=== PATIENT | female | born 1955 | race Caucasian/White ===

== ENCOUNTER 2020-01-16 05:11 | Inpatient (IN) ==
--- NOTE | 2020-01-02 20:57 | PAT Medication Instructions ---
Medication Instructions Date of Service January 02, 2020 Home Medications Medication Instructions Recorded tizanidine 4 mg tablet 4 mg PO HS PRN #30 tab 05/08/19 escitalopram oxalate 5 mg tablet 5 mg PO DAILY PRN #90 tab 10/23/19 atenolol 50 mg tablet 50 mg PO QAM #90 tab 12/20/19 pravastatin 40 mg tablet 40 mg PO HS #90 tab 12/21/19 diclofenac potassium 50 mg tablet 50 mg PO BID #60 tab 12/25/19 clobetasol 0.05 % topical cream 1 appln TOP DAILY PRN diclofenac sodium 1 % topical gel 1 g TOP TID PRN lisinopril 5 mg tablet 2.5 - 5 mg PO QAM multivitamin,ky-adqm-lshrakgn 1 tab PO DAILY tizanidine 4 mg tablet 4 mg PO HS PRN omeprazole 20 mg PO QAM turmeric 400 mg PO DAILY escitalopram oxalate 5 mg tablet 5 mg PO DAILY PRN atenolol 50 mg tablet 50 mg PO QAM pravastatin 40 mg tablet 40 mg PO HS diclofenac potassium 50 mg tablet 50 mg PO BID diclofenac sodium 75 mg PO BID ASK your surgeon for instructions diclofenac potassium 50 mg tablet 50 mg PO BID diclofenac sodium 75 mg PO BID STOP taking 2 weeks before surgery (or as soon as possible if surgery is within 2 weeks) turmeric 400 mg PO DAILY STOP taking 24 hours before surgery clobetasol 0.05 % topical cream 1 appln TOP DAILY PRN diclofenac sodium 1 % topical gel 1 g TOP TID PRN DO NOT take the morning of surgery lisinopril 5 mg tablet 2.5 - 5 mg PO QAM multivitamin,uv-tvas-npxlqaxr 1 tab PO DAILY Take morning of surgery With a small sip of water, OTHERWISE NOTHING TO EAT OR DRINK AFTER MIDNIGHT: omeprazole 20 mg PO QAM escitalopram oxalate 5 mg tablet 5 mg PO DAILY PRN (if needed) atenolol 50 mg tablet 50 mg PO QAM Take evening before surgery tizanidine 4 mg tablet 4 mg PO HS PRN (if needed) escitalopram oxalate 5 mg tablet 5 mg PO DAILY PRN (if needed) pravastatin 40 mg tablet 40 mg PO HS Other Notes If you have any questions please call us at [phone] or [phone] or [phone] or [phone]
--- NOTE | 2020-01-03 09:25 | Anesthesiology Consultation ---
Date of Service January 03, 2020 Assessment & Plan (1) Encounter for pre-operative examination: Per PAT assessment on 01/02: Travel screen- patient traveled to [facility] to visit [facility] site 12/27/19 and shopping in [facility]. No known COVID-19 positive contacts. No history of COVID-19 testing. No current COVID-19 related symptoms. Chart Review Chart Review: Acceptable Risk for Surgery and Patient seen in Pre Admission Testing Teaching & Discussion Pre-Anesthesia Teaching/Discussion Notes: Instructed NPO after midnight before surgery,except medications with 15 cc of water. Medication instructions provided according to the PAT guidelines. History Surgery Operation Date: 01/16/20 10:55 Proposed Procedures p Left Total Hip Replacement - Arnulfo Lozano MD Height/Weight Height: 5 ft 4 in Weight: 108 kg Allergies Allergy/AdvReac Type Severity Reaction Status Date / Time morphine Allergy Intermediate hypotension, Verified 12/28/19 14:49 emesis, dry heave Egtupwq-Bto-Xdi Reductase AdvReac Mild muscle pain Verified 12/28/19 14:49 Inhibitor Medications Home Medications Medication Instructions Recorded Confirmed Last Taken clobetasol 0.05 % topical cream 1 appln TOP DAILY PRN 05/08/19 12/28/19 Unknown diclofenac sodium 1 % topical gel 1 g TOP TID PRN gm 05/08/19 12/28/19 Unknown lisinopril 5 mg tablet 2.5 - 5 mg PO QAM 05/08/19 12/28/19 07/29/19 multivitamin,dg-istq-alpgnxpf 1 tab PO DAILY 05/08/19 12/28/19 07/29/19 tizanidine 4 mg tablet 4 mg PO HS PRN #30 tab 05/08/19 12/28/19 Unknown omeprazole 20 mg PO QAM 07/10/19 12/28/19 07/29/19 turmeric 400 mg PO DAILY 07/10/19 12/28/19 Unknown escitalopram oxalate 5 mg tablet 5 mg PO DAILY PRN #90 tab 10/23/19 12/28/19 Unknown atenolol 50 mg tablet 50 mg PO QAM #90 tab 12/20/19 12/28/19 Unknown pravastatin 40 mg tablet 40 mg PO HS #90 tab 12/21/19 12/28/19 Unknown diclofenac potassium 50 mg tablet 50 mg PO BID #60 tab 12/25/19 12/28/19 Unknown diclofenac sodium 75 mg PO BID 12/28/19 12/28/19 Unknown Past Medical History Medical History (Updated 01/03/20 @ 12:33 by Bethany Guerra) Anxiety BCC (basal cell carcinoma) DDD (degenerative disc disease) lumbar History of blood clots LLE DVT (~2007), was on AC after event/since discontinued, no issues since History of hepatitis type unknown (?A)-- age 9/no issues since History of melanoma Hx of fracture of humerus left s/p fall- no surgical intervention PVD (posterior vitreous detachment), left eye floaters in L eye Exercise / Class Metabolic Activity III < 4 Walking/Shop/Light housework Past Family History Family History Father Asbestosis Diabetes Heart disease Mother Diabetes Alzheimer disease Brother No problems noted. Aunt Colorectal cancer Denies family history of Ovarian cancer Prostate cancer Myocardial infarction Breast cancer Lung cancer Past Surgical History Surgical History History of abdominoplasty 2002 History of bilateral tubal ligation History of colonoscopy History of hysterectomy with pubovaginal sling, 2003 History of knee surgery bilateral knees, laparoscopic cartilage tears 1997 and 1999 History of left shoulder replacement 2017 History of right hip replacement 2014 History of tonsillectomy done in 1958 Status post Mohs surgery Past Anesthesia History No Hx of Anesthesia Complications and No Family Hx of Anesthesia Complications (except post-op nausea for mother) History of PONV No Hx of PONV and Hx of Motion Sickness Social History Smoking Status: Never smoker Do You Dip or Chew Tobacco: No Hx Alcohol Use: No Hx Substance Use: No substance use type: does not use Review of Systems Chronic, dry morning cough unchanged. Patient denies chest pain, shortness of breath, chills, fever, wheezing, palpitations. Physical Exam Vital Signs VITALS BP 125/73 P 58 TEMP 98.9 SP02 94%RA RESP 18 PHYSICAL Full neck and c-spine range of motion. Full TMJ range of motion. TMD 3.5 finger breaths Mallampati Score 3 Dentition: intact, right upper implant, several crowns, left upper bridge Lungs: clear throughout to auscultation Cardiac: regular rate and rhythm, no murmurs noted Spine: normal Carotid arteries: negative bruit Extremities: no edema Testing Laboratory Results 01/03/20 09:55 PT 10.8 Seconds (9.0-12.0) 01/03/20 09:55 INR 1.0 (0.9-1.1) 01/03/20 09:55 APTT 25.4 Seconds (21.0-31.0) 01/03/20 09:55 Blood Type AB Positive 01/03/20 09:55 Antibody Screen NEGATIVE 01/03/20 09:55 12/20/19 SODIUM 138 POTASSIUM 4.8 CHLORIDE 104 CO2 29 BUN 18 CREATININE 0.86 GLUCOSE 102 HGBA1C 5.7% Electrocardiogram Date: 07/12/19 Findings: + SB @ (51) Chest X-Ray Date: 07/29/19 Lung volumes are normal. Lungs are clear. There is no pneumothorax or pleural effusion. Cardiac size is normal. Mediastinal contours are normal. There is no evidence for pulmonary edema. Left shoulder arthroplasty is partially imaged. Note is made of a nondisplaced fracture of the posterior lateral left eighth rib. This fracture is age indeterminate but was not evident on exam of July 12, 2019. IMPRESSION: Acute to subacute nondisplaced fracture of the left eighth rib (patient reports this resolved without intervention per PAT visit 01/03/20). No pneumothorax.
[2020-01-03 10:57] LABS: Basophils # (auto) 0.01 K/uL (0-0.2); Basophils % (auto) 0.2 %; Eosinophils # (auto) 0.43 K/uL (0-0.5); Hematocrit (blood only) 42.1 % (37-47); Hemoglobin 13.8 g/dL (12.0-16.0); Immature Granulocytes # (auto) 0.02 K/uL (0.00-0.02); Immature Granulocytes % (auto) 0.3 %; Lymphocytes # (auto) 1.35 K/uL (1.2-3.4); Mean Corpuscular Hemoglobin 30.9 pg (25-34); Mean Corpuscular Hgb Conc 32.8 g/dL (32-36); Mean Corpuscular Volume 94.4 fL (80-100); Mean Platelet Volume 10.8 fL (7.4-10.4); Monocytes # (auto) 0.57 K/uL (0.11-0.59); Monocytes % (auto) 9.3 %; Neutrophils # (auto) 3.77 K/uL (1.4-6.5); Neutrophils % (auto) 61.2 %; Platelet Count 191 K/uL (130-400); RDW Coefficient of Variation 13.6 % (11.5-14.5); Red Blood Count 4.46 M/uL (4.2-5.4); White Blood Count 6.15 K/uL (4.8-10.8)
[2020-01-03 11:10] LABS: Partial Thromboplastin Ratio 0.9; Partial Thromboplastin Time 25.4 Seconds (21.0-31.0); Prothrombin Time 10.8 Seconds (9.0-12.0)
--- NOTE | 2020-01-12 18:43 | History and Physical Report ---
DATE OF ADMISSION: 01/16/2020 CHIEF COMPLAINT: Persistent left hip pain and discomfort. HISTORY OF PRESENT ILLNESS: The patient is a 64-year-old female who presents for surgical treatment of her left hip. She had a long history of left hip problems. She underwent a right hip replacement done by Dr. Mcclendon in [place] back in 2013. She has done okay from this but over the past several years, she developed increased pain and discomfort in her left hip. She has groin pain, thigh pain, radiates down to her knee. The more she walks, the more it hurts. She limps more as the day goes on. She was actually scheduled for surgery back in July, but fell and broke her humerus a week before the surgery and had to cancel. She was then rescheduled and this was then delayed due to COVID epidemic. She now presents for surgical treatment. Her symptoms are unchanged and only have gotten worse. She takes diclofenac with minimal relief. PAST MEDICAL HISTORY: 1. Elevated cholesterol. 2. Hypertension. 3. Hepatitis. 4. Gastroesophageal reflux disease. 5. Questionable history of a DVT in 2007 without clotting disorder. 6. Obesity. 7. Sciatica. 8. Melanoma. PAST SURGICAL HISTORY: Include: 1. Tonsillectomy. 2. Hysterectomy. 3. Vaginal sling surgery. 4. Abdominoplasty. 5. Bilateral knee arthroscopy. 6. Right total hip replacement done 03/11/2014 in [place]. 7. Left shoulder replacement done 05/2017. ALLERGIES: MORPHINE, WHICH CAUSES HYPERTENSION AND NAUSEA. HOME MEDICATIONS: Include: 1. Atenolol. 2. Lisinopril. 3. Prilosec. 4. Tramadol. 5. Diclofenac. 6. Tizanidine. 7. Multivitamin. 8. Turmeric. 9. Lexapro. 10. Clobetasol cream. SOCIAL HISTORY: A 64-year-old white female. She lives in [place]. She is . She does not drink. No smoking history. FAMILY HISTORY: Significant for heart disease and diabetes. REVIEW OF HISTORY: Negative for diabetes, neurologic problems, vascular problems or bleeding disorders. No current chest pain or shortness of breath. No clear history of DVT or PE. No known clotting disorder. PHYSICAL EXAMINATION: GENERAL: Shows pleasant, middle-aged female. Looks to be in pretty good health. HEENT: Benign. NECK: Supple, no lymphadenopathy. LUNGS: Clear to auscultation. HEART: Has a regular rate and rhythm. ABDOMEN: Soft, nontender, nondistended. EXTREMITIES: Grossly neurovascularly intact except as follows: Examination of the left hip revealed patient ambulates independently. She does have a slight limp on the left side. She is about a 0.5 cm short on the left compared to her right. She has got pain with hip motion and stiffness with hip motion. She can internally rotate to about neutral. Negative straight leg raise. X-RAYS: X-rays of the left hip from previously reviewed, shows advanced left hip DJD. She has got fairly concentric inflammatory type disease pattern. She has got near complete loss of joint space. She has pincer type impingement. ASSESSMENT: A 64-year-old white female who has had history of hypertension, elevated cholesterol, gastroesophageal reflux disease, and obesity with advanced left hip degenerative joint disease. She has been scheduled for hip surgery several times and canceled for multiple reasons. Everything cleared up now and she would like to proceed. PLAN: We will take her to the operating room and do a left total hip replacement. The risks and benefits of this procedure were explained to the patient including but not limited to DVT, PE, , infection, neurological injury, vascular injury, bleeding problem, pain, limited range of motion, stiffness, failure to relieve symptoms, incomplete relief of symptoms, need for further surgery in future, fracture, leg length inequality, nerve palsy, and dislocation, etc. The patient understands and desires to proceed. Informed consent was obtained. I did tell we will do the best we can to get her leg lengths as equal as possible. We did talk to her about taking her atenolol the morning of surgery and holding lisinopril. She is planning to be discharged home using [facility] home health program.
[2020-01-16] MEDS ORDERED: LR 60ML/HR IV SCH (06:00)
[2020-01-16] MEDS ORDERED: BUPIVACAINE LIPOSOME/PF 266 MG, BUPIVACAINE/EPINEPHRINE 50 ML, SODIUM CHLORIDE 0.9% 30 ... INFIL SCH (06:00)
[2020-01-16] MEDS ORDERED: TRANEXAMIC ACID 1,000 MG **IV Pre-op IV SCH (06:00)
[2020-01-16] MEDS ORDERED: ACETAMINOPHEN 500 MG TAB PO SCH (06:00)
[2020-01-16] MEDS ORDERED: LR 500ML BOLUS, THEN 15ML/HR IV SCH (06:00)
[2020-01-16] MEDS ORDERED: GABAPENTIN 300 MG CAP PO SCH (06:00)
[2020-01-16] MEDS ORDERED: TRANEXAMIC ACID 1,000 MG **IV Intra-op IV SCH (06:00)
[2020-01-16] MEDS ORDERED: METOCLOPRAMIDE HCL 10 MG TABLET PO SCH (06:00)
[2020-01-16] MEDS ORDERED: FAMOTIDINE 20 MG TAB PO SCH (06:00)
[2020-01-16] MEDS ORDERED: CEFAZOLIN 2000MG 2,000 MG/15 ML SYR IV SCH (06:00)
[2020-01-16] MEDS ORDERED: SCOPOLAMINE 1.5 MG TDSY TD SCH (06:00)
[2020-01-16] MEDS ORDERED: BUPIVACAINE 0.5 % 5 MG/1 ML PF 10ML VIAL ONE (06:13)
[2020-01-16] MEDS ORDERED: MIDAZOLAM HCL 1 MG/ML 2ML VIAL ONE ×2 (06:29→06:30)
[2020-01-16] MEDS ORDERED: fentaNYL citrate 100 MCG/2 ML VIAL ONE (06:29)
[2020-01-16] MEDS ORDERED: MoRPHine SULFATE PF 1 MG/ML 10 ML AMP/VIAL ONE (06:31)
[2020-01-16] MEDS ORDERED: ONDANSETRON INJ 2 MG/ML 2 ML VIAL IV PRN ×2 (06:34→09:33)
[2020-01-16] MEDS ORDERED: fentaNYL citrate 100 MCG/2 ML VIAL IV PRN (06:34)
[2020-01-16] MEDS ORDERED: ePHEDrine sulfate 50 MG/ML AMP IV PRN (06:34)
[2020-01-16] MEDS ORDERED: ATROPINE SULFATE 0.1 MG/ML 10ML SYR IV PRN (06:34)
[2020-01-16] MEDS ORDERED: EPINEPHrine INJ 1 MG/ML AMP ONE (06:42)
[2020-01-16] MEDS ORDERED: BUPIVACAINE 0.5 % 5 MG/1 ML MPF 30ML VIAL ONE (06:42)
[2020-01-16] MEDS ORDERED: BACITRACIN INJ 50,000 UNIT VIAL ONE (06:43)
--- NOTE | 2020-01-16 06:50 | History & Physical Bridge Note ---
Date of Service January 16, 2020 History & Physical Bridge Note I have examined the patient, reviewed the History & Physical and in the interval since the performance of the History & Physical I have noted the following changes of clinical significance: no changes noted
[2020-01-16] MEDS ORDERED: ePHEDrine sulfate 50 MG/ML SYR ONE (07:12)
[2020-01-16] MEDS ORDERED: PROPOFOL IV EMULSION 10 MG/ML 20 ML VIAL IV ONE (07:12)
--- NOTE | 2020-01-16 08:45 | Post Operative Brief Note ---
PG Immediate Post Op with CF Date of Surgery January 16, 2020 Pre & Post Diagnosis Operation Date: 01/16/20 07:00 Pre-Op Diagnosis: LEFT HIP DEGENERATIVE JOINT DISEASE Post-Op Diagnosis: LEFT HIP DEGENERATIVE JOINT DISEASE I identified the patient and participated in the time-out.: Yes Procedure Operation Date: 01/16/20 07:00 Actual Procedures p Left Total Hip Replacement(Left) - Arnulfo Lozano MD Surgeon Arnulfo Lozano MD Printing Agent Froilan, PAC Estimated Blood Loss 300 Findings Consistent with Post-Op Diagnosis Fluids 1000 cc Specimens Specimen Description: Permanent Specimen: A) Left Femoral Head Drains Forde Catheter Anesthesia Type Spinal MAC Complications none Disposition Accompanied Patient To Recovery: Yes Disposition: Recovery Room
--- NOTE | 2020-01-16 09:09 | XRay Report ---
XR hip 1V LT w pelvis CLINICAL HISTORY: Postoperative evaluation. COMPARISON: Left hip radiographs July 29, 2019. FINDINGS: Alignment of the total left arthroplasty is anatomic. There is no fracture or unexpected r adiopaque foreign body. There are 2 acetabular screws. Skin tomas are noted. Right hip arthroplasty is noted. IMPRESSION: Expected findings following total left hip arthroplasty. ACT 112: Negative or not required by law. Electronically signed by: Bennett Miller M.D. 01/16/2020 9:07 AM
[2020-01-16] MEDS ORDERED: NALOXONE HCL 0.4 MG/1 ML VIAL/CARP IV PRN (09:33)
[2020-01-16] MEDS ORDERED: TIZANIDINE HCL 4 MG TABLET PO PRN (09:33)
[2020-01-16] MEDS ORDERED: ALUMINUM/MAGNESIUM SUSP 30 ML UDC PO PRN (09:33)
[2020-01-16] MEDS ORDERED: METOCLOPRAMIDE HCL INJ 5 MG/ML 2 ML VIAL IV PRN (09:33)
[2020-01-16] MEDS ORDERED: NON-FORMULARY MEDICATION (Clobetasol 1 APPLN) TOP PRN (09:33)
[2020-01-16] MEDS ORDERED: HYDROmorphone INJ 0.5 MG/0.5 ML SYR IV PRN (09:33)
[2020-01-16] MEDS ORDERED: MAGNESIUM HYDROXIDE SUSP 30 ML UDC PO PRN (09:33)
[2020-01-16] MEDS ORDERED: bisacodyL 10 MG SUPP PR PRN (09:33)
[2020-01-16] MEDS: SODIUM CHLORIDE 0.9% 1000ML 1,000 ML IV SCH ×2 (10:08→19:57)
[2020-01-16] MEDS ORDERED: BETAMETHASONE DIP AUG (DIPROLENE) 0.05% CR 15 GM TUBE EXT PRN (10:10)
--- NOTE | 2020-01-16 10:17 | Anesthesiology Progress Note ---
Date of Service January 16, 2020 Anesthesia Post Procedure Vital Signs Vital Signs: Temp Pulse Pulse Resp BP Pulse Ox 01/16/20 09:59 97.3 F L 58 L 14 119/66 95 01/16/20 09:37 97.5 F L 55 L 14 130/68 95 01/16/20 09:15 97.7 F 56 L 15 118/51 L 96 01/16/20 09:05 55 L 14 113/54 L 96 01/16/20 08:55 57 L 12 119/69 97 01/16/20 08:47 97.5 F L 60 12 132/65 97 01/16/20 06:22 98.6 F 64 18 159/77 H 97 Pain Intensity Left Hip: Pain Intensity: 3 Transfer of Care Handoff Completed per policy Notes Mental Status: alert / awake / arousable and participated in evaluation Patient Amnestic to Procedure: Yes Nausea / Vomiting: adequately controlled Pain: adequately controlled Airway Patency, RR, SpO2: stable & adequate BP & HR: stable & adequate Hydration State: stable & adequate Neuraxial Anesthesia: was administered and sensory block is resolving Anesthetic Complications: no major complications apparent and Pt Satisfied with anesthetic care
--- NOTE | 2020-01-16 10:58 | Operative Report ---
Post Operative Report Pre & Post Diagnosis Operation Date: 01/16/20 07:00 Pre-Op Diagnosis: LEFT HIP DEGENERATIVE JOINT DISEASE Post-Op Diagnosis: LEFT HIP DEGENERATIVE JOINT DISEASE I identified the patient and participated in the time-out.: Yes Procedure Operation Date: 01/16/20 07:00 Actual Procedures p Left Total Hip Replacement(Left) - Arnulfo Lozano MD Surgeon Arnulfo Lozano MD Control Specialist Froilan, PAC Estimated Blood Loss 300 Findings Consistent with Post-Op Diagnosis Operative findings revealed advanced left hip DJD. She had extensive grade 4 changes of the femoral head as well as acetabulum. She had an anterior acetabular osteophyte. A moderate-sized joint effusion. Fluids 1200 cc. Specimens Left femoral head sent for pathology. Drains None. Anesthesia Type Spinal MAC Complications none Disposition Accompanied Patient To Recovery: Yes Disposition: Recovery Room Indications Patient is a 64-year-old female is had a long history of left hip pain and discomfort. She been through extensive conservative trach care which became less successful over time. She was actually scheduled for left hip replacement about 6 months ago but fell and broke her humerus. She is now healed this up. She now elected to proceed with total hip arthroplasty. Description of Procedure Operative implants consist of: 1. Biomet G7 size 48 mm acetabular shell. 2. 6.5 cancellus acetabular screws 1 of 35 mm length and 25 mm length. 3. [place] hole eliminator. 4. 48 mm outer diameter 32 mm diameter highly cross-linked polyethylene liner. 5. Trinidad Corail size 9 KLA femoral stem. 6. +5/32 mm ceramic articular ball. Patient was taken to the operating room identified and placed on the operating table supine position protectors were properly padded. IV antibiotics arrived by anesthesia team. Spinal anesthetic of the implemented holding area. A Forde catheter was placed in sterile fashion. The patient then placed in the right lateral decubitus position. An axillary roll was placed. A Stulberg hip positioner was used for positioning. The left hip and leg were then prepped and draped in usual sterile fashion. A posterior lateral approach to the left hip was then performed through a curvilinear incision centered over the greater trochanter. Sharp passes Through subcutaneous tissues down to level the IT band gluteal fascia. She did have a fairly thick and stiff soft tissue envelope. The IT band gluteal fascia then incised longitudinally in line with skin incision. The underlying greater truck bursa was excised. The piriformis and external rotators along with the posterior capsule were then released from the posterior aspect hip joint as a single layer. Great care was taken throughout the procedure protect the sciatic nerve at all times. Hip was internally rotated and dislocated. A femoral neck osteotomy cut was made with Final Cut about 12 mm above the lesser trochanter. Femoral head was removed and sent for pathology. The femur was retracted anteriorly. Attention drawn the acetabulum. The acetabular labrum was excised. The pulmonary fat fat was excised. Sequential reaming the acetabular was then performed again with size 43 and progressing up to a 47. We did just anterior the a beginning of the acetabulum with a 48 reamer. I then placed a 48 mm Biomet G7 acetabular shell in about 40 degrees lateral opening and 20 degrees of anteversion. It was fixed with two 6.5 cancellus acetabular screws. An anterior osteophyte was removed. Trial liner was placed. Attention drawn the femur. The proximal femur was entered with a cookie-cutter followed by canal finder lateralizing reamer. I then broached beginning with size 8 and progressing up to 9. It was fairly tight and 9 so we stop there. I then used a calcar reamer to smooth and off the calcar. I then trialed the hip and the +5 articular ball seem to re-create soft tissue tension appropriately, leg lengths equal and was fully stable in extension and external rotation flexion to 9 degrees into rotation over [address] I elect to place these implants. All trial implants were removed. An apex hole eliminator was placed. Highly cross-linked polyethylene liner was placed. A size 9 KLA femoral stem was impacted in position. A +5/32 mm ceramic articular ball was placed. Hip was located once again found to be stable. Attention drawn toward closing. Wound was irrigated with copious amounts of pulsatile lavage solution. I did inject locally with 60 cc of appetite Marcaine with epinephrine. The posterior capsule and external rotators were repaired as a single layer through drill holes in the posterior trochanter with #2 Tycron suture. The IT band gluteal fascia then closed in 1 PDS suture running fashion. Subcutaneous tissue then closed in 2 layers the deep layer #2 Vicryl suture in a buried interrupted fashion followed by the 2-0 Dexon suture in a buried interrupted fashion. Skin was then closed with skin tomas. Leg was then cleaned dried a sterile dressing composed Xeroform, 4 x 4's, sterile ABD pad and foam tape was applied. Patient then transferred to the recovery room in stable condition. Patient tolerated procedure well and there were no complications. I attest to the content of the Intraoperative Record and any orders documented therein. Any exceptions are noted below.
[2020-01-16] MEDS: ATENOLOL 50 MG TABLET PO SCH (11:00)
[2020-01-16] MEDS: lisinopriL 5 MG TAB PO SCH (11:01)
[2020-01-16] MEDS: PANTOprazole 40 MG TAB PO SCH (11:02)
[2020-01-16] MEDS: ASPIRIN 81 MG ECTAB PO SCH ×3 (11:04→20:33)
[2020-01-16] MEDS: DOCUSATE SODIUM 100 MG CAP PO SCH ×3 (11:04→20:33)
[2020-01-16] MEDS: MULTIVITAMIN TAB PO SCH (11:15)
[2020-01-16] MEDS: CEROVITE ADV FORMULA TAB PO SCH (11:15)
[2020-01-16] MEDS: KETOROLAC TROMETHAMINE 15 MG/ML VIAL IV SCH ×2 (12:34→17:03)
--- NOTE | 2020-01-16 13:45 | Progress Notes ---
DATE: 01/16/2020 SUBJECTIVE: A 64-year-old white female postop from a left total hip replacement. She is doing pretty well. Has a little bit of pain but manageable. No chest pain or shortness of breath. Not feeling dizzy or lightheaded. OBJECTIVE: VITAL SIGNS: Temperature 36.6. Vital signs stable. GENERAL: Shows a pleasant, middle-aged female. She is lying in bed, looks pretty comfortable. LUNGS: Clear to auscultation. HEART: Has a regular rate and rhythm. ABDOMEN: Soft, nontender, nondistended. EXTREMITIES: Grossly neurovascularly intact except as follows: Examination of the left lower extremity reveals the leg to be well aligned. Leg lengths appear equal. Hip is located. Dressing is clean, dry and intact. Thigh is soft and supple. She can dorsiflex and plantarflex her foot appropriately. X-RAYS: X-rays of the left hip from recovery room reviewed. It shows left uncemented total hip arthroplasty. Components look to be in good position. No signs of problems. ASSESSMENT: 64-year-old white female postop from a left hip replacement, doing well. Her pain is reasonably well controlled. Hip is located. She is neurologically intact. PLAN: 1. DVT prophylaxis including thigh-high TEDS, SCDs, and aspirin twice a day. 2. PT/OT. Weight bear as tolerated. Left total hip protocol. 3. Pain control, doing pretty well with current pain regimen. 4. IV antibiotics x24 hours. 5. Disposition: Plan to discharge to home with some home health once adequately recovered and medically stable.
[2020-01-16] MEDS: ACETAMINOPHEN 500 MG TAB PO SCH ×2 (14:14→20:32)
[2020-01-16] MEDS: TRAMADOL HCL 50 MG TABLET PO PRN ×2 (14:20→19:53)
[2020-01-16] MEDS ORDERED: TRANEXAMIC ACID / 0.7% NACL 1,000 MG/100 ML BAG IV SCH (14:48)
[2020-01-16] MEDS: CEFAZOLIN 2000MG 2,000 MG/15 ML SYR IV SCH (16:25)
[2020-01-16] MEDS: CHECK SCOPOLAMINE PATCH PLACEMENT SCH (16:25)
[2020-01-16] MEDS: ASCORBIC ACID 500 MG TAB PO SCH (18:09)
[2020-01-16] MEDS: FERROUS GLUCONATE 324 MG TAB PO SCH (18:09)
[2020-01-16] MEDS: PRAVASTATIN SOD 40 MG TAB PO SCH (20:33)
[2020-01-16] MEDS: SENNA 8.6 MG TAB PO SCH (20:34)
[2020-01-17] MEDS: CEFAZOLIN 2000MG 2,000 MG/15 ML SYR IV SCH (00:04)
[2020-01-17] MEDS: KETOROLAC TROMETHAMINE 15 MG/ML VIAL IV SCH ×5 (00:04→23:58)
[2020-01-17] MEDS: CHECK SCOPOLAMINE PATCH PLACEMENT SCH ×4 (00:08→23:58)
[2020-01-17] MEDS: TRAMADOL HCL 50 MG TABLET PO PRN ×3 (03:52→21:40)
[2020-01-17] MEDS: ACETAMINOPHEN 500 MG TAB PO SCH ×3 (05:40→21:32)
[2020-01-17] MEDS: SODIUM CHLORIDE 0.9% 1000ML 1,000 ML IV SCH (05:43)
[2020-01-17 07:13] LABS: Basophils # (auto) 0.01 K/uL (0-0.2); Basophils % (auto) 0.1 %; Eosinophils # (auto) 0.04 K/uL (0-0.5); Eosinophils % (auto) 0.3 %; Hemoglobin 11.6 g/dL (12.0-16.0); Immature Granulocytes # (auto) 0.06 K/uL (0.00-0.02); Immature Granulocytes % (auto) 0.4 %; Lymphocytes # (auto) 1.14 K/uL (1.2-3.4); Lymphocytes % (auto) 8.4 %; Mean Corpuscular Hgb Conc 31.4 g/dL (32-36); Mean Corpuscular Volume 95.6 fL (80-100); Mean Platelet Volume 10.3 fL (7.4-10.4); Monocytes # (auto) 1.22 K/uL (0.11-0.59); Neutrophils # (auto) 11.06 K/uL (1.4-6.5); Neutrophils % (auto) 81.8 %; Platelet Count 171 K/uL (130-400); RDW Coefficient of Variation 13.7 % (11.5-14.5); Red Blood Count 3.87 M/uL (4.2-5.4); White Blood Count 13.53 K/uL (4.8-10.8)
[2020-01-17 07:29] LABS: BUN Creatinine Ratio 19.3 (10-20); Calcium 9.2 mg/dl (8.5-10.1); Creatinine Clr Calc Pharmacy 70.7 ml/min; Est GFR (African American) 73.3; Est GFR (Non-African American) 63.2; Potassium 4.3 mmol/L (3.5-5.1)
--- NOTE | 2020-01-17 07:52 | Progress Notes ---
DATE: 01/17/2020 SUBJECTIVE: A 64-year-old white female postop day #1 from a left hip replacement. She is doing pretty well. Pain has been controlled overnight. No chest pain or shortness of breath. Not feeling dizzy or lightheaded. OBJECTIVE: VITAL SIGNS: Temperature 37.3. Vital signs stable. GENERAL: Shows a pleasant, middle-aged female. She is lying in bed, looks pretty comfortable this morning. EXTREMITIES: Examination of the left hip and leg reveals the leg lengths to be equal. Dressing is clean, dry and intact. Thigh is soft and supple. She is neurologically intact. She can dorsiflex and plantarflex her foot appropriately. LABORATORY DATA: Hemoglobin 11.6. Hematocrit 37.0. Electrolytes are pending. ASSESSMENT: A 64-year-old white female postoperative day #1 from left hip replacement, doing well. Pain is controlled. Hip is located. She is neurologically intact. PLAN: 1. DVT prophylaxis including thigh-high TEDs, SCDs, and aspirin twice a day. 2. PT/OT weightbear as tolerated. Left total hip protocol. 3. Pain control, doing pretty well with current pain regimen. 4. Disposition: Plan to discharge to home with some home health once adequately recovered and medically stable.
--- NOTE | 2020-01-17 08:22 | Anesthesiology Progress Note ---
Date of Service January 17, 2020 Anesthesia Post Procedure Vital Signs Vital Signs: Temp Pulse Pulse Resp BP Pulse Ox 01/17/20 07:14 37.3 C 75 16 120/66 93 01/17/20 03:21 37.3 C 79 20 123/69 92 01/17/20 00:00 37.7 C H 01/16/20 23:25 38.9 C H 84 16 143/74 H 93 01/16/20 19:24 37.2 C 64 18 132/73 93 01/16/20 15:18 36.6 C 65 18 144/76 H 96 01/16/20 12:55 36.4 C L 60 16 119/70 96 01/16/20 11:26 36.5 C 57 L 18 127/71 95 01/16/20 10:30 36.4 C L 52 L 18 118/66 96 01/16/20 09:59 36.3 C L 58 L 14 119/66 95 01/16/20 09:37 36.4 C L 55 L 14 130/68 95 01/16/20 09:15 36.5 C 56 L 15 118/51 L 96 01/16/20 09:05 55 L 14 113/54 L 96 01/16/20 08:55 57 L 12 119/69 97 01/16/20 08:47 36.4 C L 60 12 132/65 97 Pain Intensity Left Hip: Pain Intensity: 2 Notes Mental Status: alert / awake / arousable and participated in evaluation Nausea / Vomiting: adequately controlled Pain: adequately controlled Airway Patency, RR, SpO2: stable & adequate BP & HR: stable & adequate Hydration State: stable & adequate Neuraxial Anesthesia: sensory block resolved Anesthetic Complications: Pt Satisfied with anesthetic care
[2020-01-17] MEDS: ASCORBIC ACID 500 MG TAB PO SCH ×2 (08:23→18:01)
[2020-01-17] MEDS: FERROUS GLUCONATE 324 MG TAB PO SCH ×2 (08:23→18:02)
[2020-01-17] MEDS: ASPIRIN 81 MG ECTAB PO SCH ×2 (08:24→21:29)
[2020-01-17] MEDS: DOCUSATE SODIUM 100 MG CAP PO SCH ×2 (08:24→21:29)
[2020-01-17] MEDS: ATENOLOL 50 MG TABLET PO SCH (08:25)
[2020-01-17] MEDS: PANTOprazole 40 MG TAB PO SCH (08:25)
[2020-01-17] MEDS: MULTIVITAMIN TAB PO SCH (08:26)
[2020-01-17] MEDS: lisinopriL 5 MG TAB PO SCH (08:26)
[2020-01-17] MEDS: CEROVITE ADV FORMULA TAB PO SCH (08:26)
[2020-01-17] MEDS: PRAVASTATIN SOD 40 MG TAB PO SCH (21:29)
[2020-01-17] MEDS: SENNA 8.6 MG TAB PO SCH (21:29)
[2020-01-17] MEDS: ESCITALOPRAM OXALATE 10 MG TAB PO PRN (21:41)
[2020-01-18] MEDS: ACETAMINOPHEN 500 MG TAB PO SCH (05:34)
[2020-01-18] MEDS: KETOROLAC TROMETHAMINE 15 MG/ML VIAL IV SCH (05:34)
[2020-01-18] MEDS: TRAMADOL HCL 50 MG TABLET PO PRN (07:55)
[2020-01-18] MEDS: PANTOprazole 40 MG TAB PO SCH (07:56)
[2020-01-18] MEDS: CHECK SCOPOLAMINE PATCH PLACEMENT SCH (07:56)
[2020-01-18] MEDS: ATENOLOL 50 MG TABLET PO SCH (07:57)
[2020-01-18] MEDS: lisinopriL 5 MG TAB PO SCH (07:57)
[2020-01-18] MEDS: ASPIRIN 81 MG ECTAB PO SCH (07:59)
[2020-01-18] MEDS: CEROVITE ADV FORMULA TAB PO SCH (07:59)
[2020-01-18] MEDS: DOCUSATE SODIUM 100 MG CAP PO SCH (08:00)
[2020-01-18] MEDS: MULTIVITAMIN TAB PO SCH (08:00)
[2020-01-18] MEDS: ASCORBIC ACID 500 MG TAB PO SCH (08:00)
[2020-01-18] MEDS: FERROUS GLUCONATE 324 MG TAB PO SCH (08:00)
[2020-01-18] MEDS: ESCITALOPRAM OXALATE 10 MG TAB PO PRN (08:50)
--- NOTE | 2020-01-18 08:53 | Progress Notes ---
DATE: 01/18/2020 SUBJECTIVE: A 64-year-old white female postop day 2 from a left hip replacement. She is doing pretty well. Pain is controlled. Therapy went pretty well. No chest pain or shortness of breath. Not feeling dizzy or lightheaded. OBJECTIVE: VITAL SIGNS: Temperature 36.5. Vital signs stable. GENERAL: Shows a pleasant, middle-aged female. She is sitting up in her bedside chair and looks comfortable. EXTREMITIES: Examination of left hip and leg reveals the leg lengths to be equal. Dressing is clean, dry and intact. Thigh is soft and supple. She is neurologically intact. ASSESSMENT: A 64-year-old white female postop day 2 from a left hip replacement, doing well. Pain is controlled. Hip is located. She is neurologically intact. PLAN: 1. DVT prophylaxis including thigh-high TEDs, SCDs, and aspirin twice a day. 2. PT/OT. Weight bear as tolerated. Left total hip protocol. 3. Pain control, doing well with current pain regimen. 4. Disposition: Plan to discharge to home with some home health later today.
--- NOTE | 2020-01-21 16:25 | Discharge Summary ---
Date of Service January 21, 2020 Admission HPI Per Admitting Provider Documented in the H&P Admission Exam (Per Admitting) Constitutional Documented in the H&P Discharge Data Consultations 01/17/20 08:00 Consult Case Management - Discharge Planning Routine Procedures Performed Operation Date: 01/16/20 07:00 Actual Procedures p Left Total Hip Replacement(Left) - Arnulfo Lozano MD Hospital Course (1) Status post total hip replacement, left: 64-year-old female admitted on 01/16/2020 and underwent total hip arthroplasty. She tolerated the procedure well there no complications. She is transferred to the PACU postoperatively and later the orthopedic for further care. She is given Ancef for antibiotic prophylaxis. She was given DANNY stockings, SCDs, and aspirin for DVT prophylaxis. Hemoglobin, hematocrit, and vital signs were monitored during her hospital stay and remained stable. There were no complications. She did not require any blood transfusions. By postoperative day 2 she was tolerating a regular diet, pain was controlled with oral pain medicine, and she was participating in physical therapy. On postoperative day 2 she was discharged home set up with home health services. She is given printed discharge instructions as well as new prescriptions for extra strength Tylenol, aspirin, and tramadol. Continue physical therapy. Continue weightbearing as tolerated. Continue total hip precautions. Follow-up approximately 2 weeks postop or sooner if there are any problems or concerns. Coding Level of Care Code None Diagnoses Status post total hip replacement, left Z96.642
== END 2020-01-18 11:25 | disposition home health service (06) | DRG 470 ==
LOC: ASU 05:11 → 3E 08:49

== ENCOUNTER 2023-03-21 07:12 | Inpatient (IN) ==
[2023-03-21] MEDS ORDERED: ONDANSETRON INJ 2 MG/ML 2 ML VIAL IV STA (07:33)
[2023-03-21] MEDS ORDERED: SODIUM CHLORIDE 0.9% 500 ML IV STA (07:33)
--- NOTE | 2023-03-21 07:43 | Emergency Department Note ---
Impression & Plan Acute ischemic colitis, Acute lower GI bleeding, Abdominal pain, Abnormal EKG, Elevated troponin I level ED Provider Note NAME: JULIETA OSULLIVAN AGE: 67 SEX: F : 1955 ARRIVES VIA: Walk-In INFORMANT: Patient, ED PROVIDER(S): Chintan Rachel DO CHIEF COMPLAINT: Abdominal pain HPI: The patient is a 67-year-old female who presented to the emergency department with significant lower abdominal pain which began at 2:00 this morning. She has had 1 episode of nausea and vomiting. This was not associated with any hematemesis. The patient states that since that time she has had multiple episodes of maroon diarrhea. She has had some formed stool with this as well. She denies having any fever. She denies have any cough or chest pain. The patient states that she feels very weak. She has no history of anticoagulation use. The patient took some Imodium last evening with a small amount of water otherwise she has had nothing to eat or drink. There are no sick contacts. ROS: See above HPI for pertinent positives & negatives. A total of 10 systems reviewed and were otherwise negative. PAST MEDICAL HISTORY: See Below PAST SURGICAL HISTORY: See Below FAMILY HISTORY: See Below SOCIAL HISTORY: See Below HOME MEDICATIONS: See Below ALLERGIES: See Below VITALS: See Below PHYSICAL EXAMINATION: GENERAL: The patient is awake and alert. The patient is somewhat anxious appearing. EYES: The conjunctivae are clear. The pupils are round and reactive. EARS, NOSE, MOUTH AND THROAT: The nose is without any evidence of any deformity. NECK: The neck is nontender and supple. RESPIRATORY: Normal respiratory effort is noted there is no evidence of wheezing rhonchi or rales CARDIOVASCULAR: Regular rate and rhythm noted there no murmurs rubs or gallops normal S1 normal S2. GASTROINTESTINAL: The abdomen is soft and mildly distended. There is left lower quadrant tenderness to palpation which is moderate. There is also diffuse abdominal tenderness. Rectal exam revealed maroon stool. There is also mult iple external hemorrhoids. 1 of which appeared to have some acute bleeding. MUSCULOSKELETAL/EXTREMITIES: There is no evidence of gross deformity full range of motion is noted in the hips and shoulders. SKIN: There is no obvious evidence of any rash. Trace pedal edema was noted. Pulses are symmetric in both feet. NEUROLOGIC: Patient is awake alert and oriented x3 MEDICAL DECISION MAKING: The patient is a 67-year-old female who presented to the emergency department for abdominal pain and rectal bleeding. Rectal bleeding started last night into the morning. The patient was treated with IV fluids and IV pain medication. She was reevaluated multiple times. She was also treated with IV antibiotics for presumed colitis. I discussed the patient's laboratory and radiographic studies with her. CT does appear to be consistent with possible ischemic colitis. I discussed her condition with the on-call billiard table mechanic. The patient was felt to be a good candidate for inpatient management given her findings. The case will be discussed with the on-call [facility]ist as well. The patient was feeling much better on reevaluation. Triage Nursing notes reviewed. Prior medical records reviewed Vital Signs: reviewed and remarkable for elevated blood pressure. Differential diagnosis: Etiologies such as appendicitis, diverticulitis, obstruction, inflammatory bowel disease, renal colic, PUD, biliary pathology, pancreatitis, mesenteric ischemia, aortic pathology, infections, genitourinary, UTI, perforated viscus, as well as others were entertained. ER treatment provided: See below Diagnostics interpreted by me: ECG: EKG was obtained in the emergency department. My interpretation is normal sinus rhythm at 79 bpm. LVH was noted by voltage criteria. Nonspecific ST depressions were noted in the low lateral leads. This was compared to a tracing from July 22, 2019. The ST segment abnormalities are new compared to previous tracing. Cardiac Monitoring: An order was placed for continuous cardiac monitoring. The monitor shows a rate of 76 bpm with sinus rhythm. Laboratory studies: As stated above and show below. Imaging studies: See below. Radiographic imaging was reviewed by myself Consultation(s): I discussed this case with Dr. Lal who is on-call for gastroenterology. He will evaluate the patient. Dr Wall was notified about the patient. He will evaluate the patient in the emergency department for further management and disposition. I discussed this case with Carmen Waterman who is covering for general surgery. I discussed this case with Dr. Stanley who is on-call for the [facility]ist group. Past Med/Surg History Medical History Anxiety DDD (degenerative disc disease) lumbar History of blood clots LLE DVT (~2007), was on AC after event/since discontinued, no issues since History of COVID-19 05/2022>SMELL IS DIMINISHED STILL History of hepatitis type unknown (?A)-- age 9/no issues since History of melanoma Hx of basal cell carcinoma Hx of fracture of humerus left s/p fall- no surgical intervention Hyperlipidemia Hyperparathyroidism Hypertension PVD (posterior vitreous detachment), left eye floaters in L eye Trochanteric bursitis, right hip Surgical History Family history of reaction to anesthesia MOTHER/NAUSEA History of abdominoplasty History of bilateral tubal ligation History of cataract surgery B/L with implants History of colonoscopy History of hysterectomy TVH with pubovaginal sling, 2002 History of knee surgery bilateral knees, laparoscopic cartilage tears 1997 and 1999 History of left shoulder replacement History of right hip replacement History of tonsillectomy History of total left hip replacement Status post Mohs surgery Family History Father Asbestosis Diabetes Heart disease Mother Diabetes Alzheimer disease Brother No problems noted. 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 Feels Safe at Home: Yes Childhood Exposure to Second-Hand Smoke: Yes Diet: regular Dental Care, Regularly: Yes Physical Activity Frequency: Daily Seatbelt Use: always Sunscreen Use: Yes Assistive Devices: Glasses Allergies Allergies Allergy/AdvReac Type Severity Reaction Status Date / Time morphine Allergy Intermediate hypotension, Verified 03/14/23 09:54 emesis, dry heave [id number] Reductase AdvReac Mild muscle pain Verified 03/14/23 09:54 Inhibitor [Pymbtag-Aue-Hff Reductase Inhibitor] Home Meds Home Medications Medication Instructions Recorded Confirmed clobetasol 0.05 % topical cream 1 appln topical DAILY PRN ezcema 05/08/19 03/21/23 cholecalciferol (vitamin D3) 25 25 mcg PO QAM 10/18/22 03/21/23 mcg (1,000 unit) tablet (Vitamin D3) lisinopril 2.5 mg tablet 2.5 mg PO QAM 10/18/22 03/21/23 omeprazole 20 mg capsule,delayed 20 mg PO QAM 10/18/22 03/21/23 release tizanidine 4 mg tablet 4 mg PO HS muscle spasticity 01/27/23 03/21/23 Previous Rx's Medication Instructions Recorded betamethasone dipropionate 0.05 % 1 appln topical BID PRN skin 01/07/20 topical cream irritation #45 grams turmeric root extract 500 mg 500 mg PO DAILY #30 caps 04/07/22 capsule atenolol 50 mg tablet 50 mg PO QAM #90 tabs 11/23/22 diclofenac sodium 75 mg 75 mg PO BID pain #180 tabs 12/15/22 tablet,delayed release escitalopram oxalate 5 mg tablet 2.5 mg PO DAILY PRN Anxiety #45 01/13/23 (Lexapro) tabs pravastatin 20 mg tablet 20 mg PO HS #90 tabs 02/03/23 tramadol 50 mg tablet 50 - 100 mg PO Q6H PRN pain #30 02/25/23 tabs Results & Data (ED) Vital Signs Vital Signs - 24 hr 03/21/23 07:19 03/21/23 07:50 03/21/23 09:16 Temperature 36.9 C Temperature Source Temporal Artery Scan Pulse Rate 85 86 Respiratory Rate 18 Respiratory Effort / Characteristics Non-Labored Spontaneous Respiratory Depth Normal Blood Pressure 207/86 H Blood Pressure Mean 126 Pulse Oximetry 95 Oxygen Delivery Method Room Air Room Air Sepsis Recent Fever Within 48 Hours No Sepsis New/Unexplained Change in Mental Status No Sepsis Action Taken by Nursing No Action Required Home Medications Current Medication List: was personally reviewed by me Laboratory Data Attestation: I reviewed the patient's lab results. 03/21/23 07:39 03/21/23 07:39 Lab Results 03/21/23 03/21/23 03/21/23 Range/Units 07:39 07:39 07:39 WBC 16.43 H (4.8-10.8) K/ul RBC 4.68 (4.20-5.40) M/uL Hgb 14.6 (12.0-16.0) g/dl POC Hgb (12.0-16.0) g/dl Hct 43.5 (37.0-47.0) % POC Hct (37-47) % MCV 92.9 (80.0-100.0) fL MCH 31.2 (25.0-34.0) pg MCHC 33.6 (32.0-36.0) g/dL RDW Std Deviation 42.7 (36.4-46.3) fL RDW Coeff of Sang 12.6 (11.5-14.5) % Plt Count 169 (130-400) K/uL MPV 10.4 (9.4-12.4) fL Immature Gran % (Auto) 0.7 % Neut % (Auto) 87.5 % Lymph % (Auto) 4.5 % [place] % (Auto) 6.0 % Eos % (Auto) 1.1 % Baso % (Auto) 0.2 % Neut # (Auto) 14.37 H (1.40-6.50) K/uL Lymph # (Auto) 0.74 L (1.2-3.4) K/uL [place] # (Auto) 0.99 H (0.11-0.59) K/uL Eos # (Auto) 0.18 (0-0.50) K/uL Baso # (Auto) 0.03 (0-0.2) K/uL Immature Gran # (Auto) 0.12 (0.01-0.20) K/uL PT 11.1 (9.0-12.0) Seconds INR 1.0 (0.9-1.1) APTT 21.5 (21.0-31.0) Seconds PTT Ratio 0.8 POC Sodium (135-144) mmol/L Sodium (136-145) mmol/L POC Potassium (3.3-5.0) mmol/L Potassium (3.5-5.1) mmol/L POC Chloride (101-112) mmol/L Chloride (98-107) mmol/L Carbon Dioxide (21-32) mmol/L POC Total CO2 (24-31) mmol/L Anion Gap (3-11) POC Anion Gap (16-25) mmol/L POC BUN (7-18) mg/dl BUN (6-23) mg/dl Creatinine (0.6-1.2) mg/dl POC Creatinine (0.6-1.3) mg/dl Est Cr Clr Drug Dosing ml/min Est GFR ( Amer) ml/min Est GFR (Non-Af Amer) ml/min BUN/Creatinine Ratio (10-20) Glucose (70-99(Fasting)) mg/dl POC Glucose (other) (70-99) mg/dl Lactate (0.4-2.0) mmol/L Calcium (8.6-10.3) mg/dl POC Ioniz Calcium Carlos (1.12-1.32) mmol/l Total Bilirubin (0.2-1.0) mg/dl AST (13-39) U/L ALT (7-52) U/L Alkaline Phosphatase (34-104) U/L Troponin I High Sens (0-14) pg/ml Total Protein (6.0-8.3) gm/dl Albumin (3.4-5.0) gm/dl Globulin (2.5-4.0) gm/dl Albumin/Globulin Ratio (0.9-2) Lipase (11-82) U/L Urine Color Urine Appearance (Clear) Urine pH (4.5-7.5) Ur Specific [place] (1.000-1.030) Urine Protein (Negative) Urine Glucose (UA) (Negative) Urine Ketones (Negative) Urine Blood (Negative) Urine Nitrite (Negative) Urine Bilirubin (Negative) Urine Urobilinogen (Negative) Ur Leukocyte Esterase (Negative) Urine WBC (Auto) (0-5) /hpf Urine RBC (Auto) (0-4) /hpf U Hyaline Cast (Auto) (0-5) /lpf U Epithel Cells (Auto) (0-5) /lpf Urine Bacteria (Auto) (Negative) Blood Type AB Positive Antibody Screen NEGATIVE 03/21/23 03/21/23 03/21/23 Range/Units 07:39 07:49 09:30 WBC (4.8-10.8) K/ul RBC (4.20-5.40) M/uL Hgb (12.0-16.0) g/dl POC Hgb 16.3 H (12.0-16.0) g/dl Hct (37.0-47.0) % POC Hct 48 H (37-47) % MCV (80.0-100.0) fL MCH (25.0-34.0) pg MCHC (32.0-36.0) g/dL RDW Std Deviation (36.4-46.3) fL RDW Coeff of Sang (11.5-14.5) % Plt Count (130-400) K/uL MPV (9.4-12.4) fL Immature Gran % (Auto) % Neut % (Auto) % Lymph % (Auto) % [place] % (Auto) % Eos % (Auto) % Baso % (Auto) % Neut # (Auto) (1.40-6.50) K/uL Lymph # (Auto) (1.2-3.4) K/uL [place] # (Auto) (0.11-0.59) K/uL Eos # (Auto) (0-0.50) K/uL Baso # (Auto) (0-0.2) K/uL Immature Gran # (Auto) (0.01-0.20) K/uL PT (9.0-12.0) Seconds INR (0.9-1.1) APTT (21.0-31.0) Seconds PTT Ratio POC Sodium 140 (135-144) mmol/L Sodium 139 (136-145) mmol/L POC Potassium 4.1 (3.3-5.0) mmol/L Potassium 4.1 (3.5-5.1) mmol/L POC Chloride 101 (101-112) mmol/L Chloride 102 (98-107) mmol/L Carbon Dioxide 29 (21-32) mmol/L POC Total CO2 27 (24-31) mmol/L Anion Gap 8 (3-11) POC Anion Gap 17.0 (16-25) mmol/L POC BUN 25 H (7-18) mg/dl BUN 23 (6-23) mg/dl Creatinine 0.91 (0.6-1.2) mg/dl POC Creatinine 0.9 (0.6-1.3) mg/dl Est Cr Clr Drug Dosing 71.8 ml/min Est GFR ( Amer) 74.6 ml/min Est GFR (Non-Af Amer) 64.4 ml/min BUN/Creatinine Ratio 25.3 H (10-20) Glucose 146 H (70-99(Fasting)) mg/dl POC Glucose (other) 152 H (70-99) mg/dl Lactate 2.0 (0.4-2.0) mmol/L Calcium 11.1 H (8.6-10.3) mg/dl POC Ioniz Calcium Carlos 1.40 H (1.12-1.32) mmol/l Total Bilirubin 0.8 (0.2-1.0) mg/dl AST 20 (13-39) U/L ALT 29 (7-52) U/L Alkaline Phosphatase 72 (34-104) U/L Troponin I High Sens 24.7 H (0-14) pg/ml Total Protein 7.7 (6.0-8.3) gm/dl Albumin 4.4 (3.4-5.0) gm/dl Globulin 3.3 (2.5-4.0) gm/dl Albumin/Globulin Ratio 1.3 (0.9-2) Lipase 29 (11-82) U/L Urine Color Urine Appearance (Clear) Urine pH (4.5-7.5) Ur Specific [place] (1.000-1.030) Urine Protein (Negative) Urine Glucose (UA) (Negative) Urine Ketones (Negative) Urine Blood (Negative) Urine Nitrite (Negative) Urine Bilirubin (Negative) Urine Urobilinogen (Negative) Ur Leukocyte Esterase (Negative) Urine WBC (Auto) (0-5) /hpf Urine RBC (Auto) (0-4) /hpf U Hyaline Cast (Auto) (0-5) /lpf U Epithel Cells (Auto) (0-5) /lpf Urine Bacteria (Auto) (Negative) Blood Type Antibody Screen 03/21/23 Range/Units Unknown WBC (4.8-10.8) K/ul RBC (4.20-5.40) M/uL Hgb (12.0-16.0) g/dl POC Hgb (12.0-16.0) g/dl Hct (37.0-47.0) % POC Hct (37-47) % MCV (80.0-100.0) fL MCH (25.0-34.0) pg MCHC (32.0-36.0) g/dL RDW Std Deviation (36.4-46.3) fL RDW Coeff of Sang (11.5-14.5) % Plt Count (130-400) K/uL MPV (9.4-12.4) fL Immature Gran % (Auto) % Neut % (Auto) % Lymph % (Auto) % [place] % (Auto) % Eos % (Auto) % Baso % (Auto) % Neut # (Auto) (1.40-6.50) K/uL Lymph # (Auto) (1.2-3.4) K/uL [place] # (Auto) (0.11-0.59) K/uL Eos # (Auto) (0-0.50) K/uL Baso # (Auto) (0-0.2) K/uL Immature Gran # (Auto) (0.01-0.20) K/uL PT (9.0-12.0) Seconds INR (0.9-1.1) APTT (21.0-31.0) Seconds PTT Ratio POC Sodium (135-144) mmol/L Sodium (136-145) mmol/L POC Potassium (3.3-5.0) mmol/L Potassium (3.5-5.1) mmol/L POC Chloride (101-112) mmol/L Chloride (98-107) mmol/L Carbon Dioxide (21-32) mmol/L POC Total CO2 (24-31) mmol/L Anion Gap (3-11) POC Anion Gap (16-25) mmol/L POC BUN (7-18) mg/dl BUN (6-23) mg/dl Creatinine (0.6-1.2) mg/dl POC Creatinine (0.6-1.3) mg/dl Est Cr Clr Drug Dosing ml/min Est GFR ( Amer) ml/min Est GFR (Non-Af Amer) ml/min BUN/Creatinine Ratio (10-20) Glucose (70-99(Fasting)) mg/dl POC Glucose (other) (70-99) mg/dl Lactate (0.4-2.0) mmol/L Calcium (8.6-10.3) mg/dl POC Ioniz Calcium Carlos (1.12-1.32) mmol/l Total Bilirubin (0.2-1.0) mg/dl AST (13-39) U/L ALT (7-52) U/L Alkaline Phosphatase (34-104) U/L Troponin I High Sens (0-14) pg/ml Total Protein (6.0-8.3) gm/dl Albumin (3.4-5.0) gm/dl Globulin (2.5-4.0) gm/dl Albumin/Globulin Ratio (0.9-2) Lipase (11-82) U/L Urine Color Yellow Urine Appearance Clear (Clear) Urine pH 7.0 (4.5-7.5) Ur Specific [place] 1.042 H (1.000-1.030) Urine Protein Negative (Negative) Urine Glucose (UA) Negative (Negative) Urine Ketones Negative (Negative) Urine Blood 2+ H (Negative) Urine Nitrite Negative (Negative) Urine Bilirubin Negative (Negative) Urine Urobilinogen Negative (Negative) Ur Leukocyte Esterase 1+ H (Negative) Urine WBC (Auto) 1-5 (0-5) /hpf Urine RBC (Auto) 0-4 (0-4) /hpf U Hyaline Cast (Auto) 0 (0-5) /lpf U Epithel Cells (Auto) >30 H (0-5) /lpf Urine Bacteria (Auto) Negative (Negative) Blood Type Antibody Screen Administered Medications Fentanyl Citrate (Fentanyl Citrate Pf 100 Mcg/2 Ml Vial) 50 mcg IV Q15M PRN PRN Reason: Pain Stop: 04/04/23 07:32 Last Admin: 03/21/23 07:56 Dose: 50 mcg Documented By: JEFF Ciprofloxacin (Cipro / D5w) 400 mg in 200 mls @ 100 mls/hr IV NOW STA; Protocol Stop: 03/21/23 11:03 Last Admin: 03/21/23 10:11 Dose: 100 mls/hr Documented By: JEFF Discontinued Medications Sodium Chloride (Nss) 500 mls @ 999 mls/hr IV .Q31M STA Stop: 03/21/23 08:03 Last Infusion: 03/21/23 08:42 Dose: 0 mls/hr Documented By: Admin: 03/21/23 07:52 Dose: 999 mls/hr Documented By: JEFF Piperacillin Sod/Tazobactam Sod (Zosyn) 4.5 gm in 120 mls @ 240 mls/hr IV NOW ONE Stop: 03/21/23 09:23 Last Infusion: 03/21/23 09:36 Dose: 0 mls/hr Documented By: Admin: 03/21/23 09:01 Dose: 240 mls/hr Documented By: JEFF Sodium Chloride (Nss 1000ml) 1,000 mls @ 999 mls/hr IV .Q1H1M ONE Stop: 03/21/23 09:54 Last Admin: 03/21/23 09:01 Dose: 999 mls/hr Documented By: JEFF Metronidazole (Flagyl) 500 mg in 100 mls @ 100 mls/hr IV NOW STA; Protocol Stop: 03/21/23 10:03 Last Admin: 03/21/23 10:13 Dose: 100 mls/hr Documented By: JEFF Ioversol (Optiray 320 100ml) 94 ml IV ONCE ONE Stop: 03/21/23 08:23 Last Admin: 03/21/23 08:22 Dose: 94 ml Documented By: NEHA Ondansetron HCl (Ondansetron Inj 2 Mg/Ml 2 Ml Vial) 4 mg IV NOW STA Stop: 03/21/23 07:34 Last Admin: 03/21/23 07:56 Dose: 4 mg Documented By: JEFF Imaging Data Attestation: I personally reviewed and interpreted this imaging study as follows: My Impression: CT of the abdomen and pelvis was obtained in the emergency department. My inter pretation is no free air or signs of bowel obstruction, final report below. Radiologist's Impression: Abdomen/Pelvis CT 03/21/23 07:33 CT abd pelvis IV con only CLINICAL HISTORY: LLQ pain, GIB TECHNIQUE: Helical axial images of the abdomen and pelvis were obtained and displayed. Automated dose lowering techniques and/or adjustment according to patient size were utilized for this exam. This exam was performed with intravenous contrast. CT DOSE: 1366.67 mGy.cm COMPARISON: None available at the time of this dictation. FINDINGS: Lower chest: Bibasilar atelectasis versus scarring is seen. Liver: Hepatic steatosis is noted. Gallbladder and biliary tree: No calcified gallstones. Normal caliber wall. No intra- or extrahepatic biliary ductal dilation. Pancreas: Unremarkable, no focal lesions. Spleen: Unremarkable. Adrenals: Unremarkable. Kidneys and ureters: Nonobstructive nephrolithiasis is seen. Hypodensities are seen likely representing cysts. Bladder: Unremarkable. Reproductive organs: Patient is status post hysterectomy. Bowel: Diverticulosis is seen without diverticulitis. The appendix is normal. There is wall thickening and surrounding fat stranding most prominent in the transverse colon and descending colon. A small hiatal hernia is seen. Lymph nodes Retroperitoneal: Unremarkable. Pelvic: Unremarkable. Mesenteric: Unremarkable. Peritoneum: Fat stranding is seen most prominently about the splenic flexure. No pneumoperitoneum. No abnormal fluid collections. Vessels: Atherosclerotic calcifications are seen. Abdominal wall: Unremarkable. Bones: Bilateral hip arthroplasties are seen. Degenerative changes are seen in the spine. Partial lumbarization of S1 is incidentally noted. IMPRESSION: Wall thickening and fat stranding is seen in the distal transverse and descending colon. Findings are most concerning for ischemic colitis, infectious/inflammatory etiology is possible but less likely. No evidence of perforation. ACT 112: Negative or not required by law. Electronically signed by: Prashanth Bone M.D. 03/21/2023 8:49 AM Discharge Plan Visit Data Chief Complaint: Rectal Bleed Stated Complaint: VOMITING, RECTAL BLEED, ABDOMINAL PAIN ED Provider: Chintan Rachel Discharge Problem: Acute ischemic colitis, Acute lower GI bleeding, Abdominal pain, Abnormal EKG, Elevated troponin I level Patient Disposition: Being Evaluated by Hospitalist Forms Stand Alone Forms: My [facility] Prescriptions Prescriptions: No Action turmeric root extract 500 mg capsule 500 mg PO DAILY Qty: 30 0RF atenolol 50 mg tablet 50 mg PO QAM Qty: 90 3RF diclofenac sodium 75 mg tablet,delayed release (DR/EC) 75 mg PO BID Qty: 180 3RF escitalopram oxalate [Lexapro] 5 mg tablet 2.5 mg PO DAILY PRN (Reason: Anxiety) Qty: 45 3RF tramadol 50 mg tablet 50 - 100 mg PO Q6H PRN (Reason: pain) Qty: 30 0RF Rx Instructions: Take as needed for Pain. betamethasone dipropionate 0.05 % cream 1 appln TOP BID PRN (Reason: skin irritation) Qty: 45 0RF Rx Instructions: Apply to areas of the legs twice daily x2 weeks as needed for flaring tizanidine 4 mg tablet 4 mg PO HS pravastatin 20 mg tablet 20 mg PO HS Qty: 90 3RF clobetasol 0.05 % cream 1 appln TOP DAILY PRN (Reason: ezcema) omeprazole 20 mg capsule,delayed release(DR/EC) 20 mg PO QAM lisinopril 2.5 mg tablet 2.5 mg PO QAM cholecalciferol (vitamin D3) [Vitamin D3] 25 mcg (1,000 unit) Tablet 25 mcg PO QAM Referrals Referrals: Mark Chavis DO [Physician] - Abdominal pain Qualifiers: Abdominal location: lower abdomen, unspecified Qualified Code(s): R10.30 - Lower abdominal pain, unspecified
[2023-03-21] MEDS: fentaNYL citrate PF 100 MCG/2 ML VIAL IV PRN ×2 (07:56→10:36)
[2023-03-21 08:01] LABS: Basophils # (auto) 0.03 K/uL (0-0.2); Basophils % (auto) 0.2 %; Eosinophils # (auto) 0.18 K/uL (0-0.50); Eosinophils % (auto) 1.1 %; Hematocrit (blood only) 43.5 % (37.0-47.0); Hemoglobin 14.6 g/dl (12.0-16.0); Immature Granulocytes # (auto) 0.12 K/uL (0.01-0.20); Immature Granulocytes % (auto) 0.7 %; Lymphocytes # (auto) 0.74 K/uL (1.2-3.4); Lymphocytes % (auto) 4.5 %; Mean Corpuscular Hemoglobin 31.2 pg (25.0-34.0); Mean Corpuscular Hgb Conc 33.6 g/dL (32.0-36.0); Mean Corpuscular Volume 92.9 fL (80.0-100.0); Mean Platelet Volume 10.4 fL (9.4-12.4); Monocytes # (auto) 0.99 K/uL (0.11-0.59); Neutrophils # (auto) 14.37 K/uL (1.40-6.50); Neutrophils % (auto) 87.5 %; Platelet Count 169 K/uL (130-400); RDW Coefficient of Variation 12.6 % (11.5-14.5); RDW Standard Deviation 42.7 fL (36.4-46.3); Red Blood Count 4.68 M/uL (4.20-5.40); White Blood Count 16.43 K/ul (4.8-10.8)
[2023-03-21 08:01] LABS: iSTAT Creatinine 0.9 mg/dl (0.6-1.3); iSTAT Hemoglobin 16.3 g/dl (12.0-16.0); iSTAT Ionized Calcium 1.4 mmol/l (1.12-1.32); iSTAT Potassium 4.1 mmol/L (3.3-5.0)
[2023-03-21 08:15] LABS: Albumin Globulin Ratio 1.3 (0.9-2); Albumin Level 4.4 gm/dl (3.4-5.0); BUN Creatinine Ratio 25.3 (10-20); Bilirubin,Total 0.8 mg/dl (0.2-1.0); Calcium 11.1 mg/dl (8.6-10.3); Creatinine Clr Calc Pharmacy 71.8 ml/min; Est GFR (African American) 74.6 ml/min; Est GFR (Non-African American) 64.4 ml/min; Globulin 3.3 gm/dl (2.5-4.0); Potassium 4.1 mmol/L (3.5-5.1); Total Protein 7.7 gm/dl (6.0-8.3)
[2023-03-21 08:21] LABS: Troponin I High Sensitivity 24.7 pg/ml (0-14)
[2023-03-21] MEDS ORDERED: OPTIRAY 320 100ml IV ONE (08:22)
[2023-03-21 08:30] LABS: Partial Thromboplastin Ratio 0.8; Partial Thromboplastin Time 21.5 Seconds (21.0-31.0); Prothrombin Time 11.1 Seconds (9.0-12.0)
--- NOTE | 2023-03-21 08:50 | CT Scan Report ---
CT abd pelvis IV con only CLINICAL HISTORY: LLQ pain, GIB TECHNIQUE: Helical axial images of the abdomen and pelvis were obtained and displayed. Automated dose lowering techniques and/or adjustment according to patient size were utilized for this exam. This e xam was performed with intravenous contrast. CT DOSE: 1366.67 mGy.cm COMPARISON: None available at the time of this dictation. FINDINGS: Lower chest: Bibasilar atelectasis versus scarring is seen. Liver: Hepatic steatosis is noted. Gallbladder and biliary tree: No calcified gallstones. Normal caliber wall. No intra- or extrahepatic biliary ductal dilation. Pancreas: Unremarkable, no focal lesions. Spleen: Unremarkable. Adrenals: Unremarkable. Kidneys and ureters: Nonobstructive nephrolithiasis is seen. Hypodensities are seen likely representi ng cysts. Bladder: Unremarkable. Reproductive organs: Patient is status post hysterectomy. Bowel: Diverticulosis is seen without diverticulitis. The appendix is normal. There is wall thickenin g and surrounding fat stranding most prominent in the transverse colon and descending colon. A small hiatal hernia is seen. Lymph nodes Retroperitoneal: Unremarkable. Pelvic: Unremarkable. Mesenteric: Unremarkable. Peritoneum: Fat stranding is seen most prominently about the splenic flexure. No pneumoperitoneum. No abnormal fluid collections. Vessels: Atherosclerotic calcifications are seen. Abdominal wall: Unremarkable. Bones: Bilateral hip arthroplasties are seen. Degenerative changes are seen in the spine. Partial lum barization of S1 is incidentally noted. IMPRESSION: Wall thickening and fat stranding is seen in the distal transverse and descending colon. Findings are most concerning for ischemic colitis, infectious/inflammatory etiology is possible but less likely. No evidence of perforation. ACT 112: Negative or not required by law. Electronically signed by: Prashanth Bone M.D. 03/21/2023 8:49 AM
[2023-03-21] MEDS ORDERED: PIPERACILLIN/TAZOBACTAM 4.5 GM/120 ML BAG IV ONE (08:54)
[2023-03-21] MEDS ORDERED: SODIUM CHLORIDE 0.9% 1000ML 1,000 ML IV ONE (08:54)
[2023-03-21] MEDS ORDERED: metroNIDAZOLE 500 MG/100 ML BAG IV STA (09:04)
[2023-03-21] MEDS ORDERED: CIPROFLOXACIN / D5W 400 MG/200 ML BAG IV STA (09:04)
[2023-03-21 09:20] LABS: Appearance Urine Clear (Clear); Bacteria Urine Automated Negative (Negative); Bilirubin Urine Negative (Negative); Blood Urine 2+ (Negative); Cast Urine Automated 0 /lpf (0-5); Color Urine Yellow; Epithelial Cell Urine Auto >30 /lpf (0-5); Glucose Urine UA Negative (Negative); Ketones Urine Negative (Negative); Leukocyte Esterase Urine 1+ (Negative); Nitrite Urine Negative (Negative); Protein Urine Negative (Negative); RBC Urine Automated 0-4 /hpf (0-4); Specific Gravity Urine 1.042 (1.000-1.030); Urobilinogen Urine Negative (Negative)
[2023-03-21] MEDS ORDERED: CARBOHYDRATES FOR HYPOGLYCEMIA PO PRN (10:14)
[2023-03-21] MEDS ORDERED: GLUCOSE 10 TAB/TUBE PO PRN (10:14)
[2023-03-21] MEDS ORDERED: GLUCAGON FOR INJ 1 MG VIAL SQ PRN (10:14)
[2023-03-21] MEDS ORDERED: GLUCOSE 40% GEL 15 GM TUBE PO PRN (10:14)
[2023-03-21] MEDS ORDERED: DEXTROSE 50% 50 ML SYRINGE IV PRN (10:14)
--- NOTE | 2023-03-21 10:31 | History & Physical Report ---
Date of Service March 21, 2023 Assessment & Plan (1) Acute ischemic colitis: (2) Acute lower GI bleeding: Plan: GI bleeding, suspected acute ischemic colitis Leukocytosis of 16, lactate 2.0 CT A/P: Suspicious for ischemic colitis, infectious/inflammatory not de finitively ruled out Surgery, GI consulted while in ER Recommended for antibiotics and conservative management at this time Continue Cipro/Flagyl, IV FM. No history of heart failure Patient does have a history of provoked DVT many years ago without other thrombosis or complications. Is not currently on a blood thinner Trend H&H every 6 hours N.p.o., while n.p.o. beta-gladys converted to every 6 hours IV metoprolol. IV antihypertensive pain control with goal less than 180. Control pain prior to administering IV antibiotics Tylenol, hydromorphone, Zofran on-call as needed for nausea/ Stool bio fire PCR pending No ROSSANA, creatinine normal on admission. Contracted BUN/creatinine ratio Hypoxic respiratory failure Patient with 88-90% oxygen levels when laying back following fentanyl administration in ER No history of heart failure or sleep apnea to patient's knowledge Chest x-ray pending, echo pending. No history of CHF SPO2 as needed to maintain sat greater than 89%. BMI 42, may trial CPAP nightly as needed Notify provider if suspected to have narcosis requiring Narcan Elevated troponin Patient denies chest pain at any point. No shortness of breath. No arm pain, no neck pain Mildly elevated troponin of 24 point suspect demand ischemia 2-hour repeat ordered at time of admission, no territorial signs of ischemia on EKG GERD IV Protonix while n.p.o. Chronic pain, back pain, spasms Tizanidine held while n.p.o. Home tramadol converted to hydromorphone as above Hypertension Lisinopril held while n.p.o., atenolol converted to IV metoprolol Due to need for IV beta-gladys will be admitted to PCU Treat pain prior to aggressive blood pressure control. Caution potential for additional watershed injury with overly aggressive BP control SCDs for DVT prophylaxis Diet: N.p.o., IVF M Dispo: PCU CODE STATUS: Full code (3) Elevated troponin I level: (4) GERD (gastroesophageal reflux disease): (5) History of blood clots: (6) Hyperlipidemia: (7) Hypertension: History of Present Illness Primary Care Provider: NATACHA Johnson 67-year-old female the past medical history of diverticulosis without diverticulitis, GERD, past DVTs many years ago suspected provoked by stasis on short course of anticoagulants not on long-term anticoagulants who presents with 1 day of Hx diverticulosis no diverticulitis No history history of melena, GIB Does have a history of some lose bowels/diarrhea in the moring up to 4-8x in the mornings loose for several years NO chest pain or chest pressure. No shortness of breath no fevers, but has felt chills with some sweats during +Abd pain which is worsed in the middle and slightly to the LLQ. Creeping back up to 8/10, best its been since arriving ~2/10 after fentanyl and zofran Did not take any medicines this morning DVT 2007. On a blood thinner for ~6 weeks -3 months thinks coumadin. NO family history of blood clots. Blood clot at that time was thought to be provoked by sitting for prolonged periods at work. L ankle intermittently swells at baseline for several years due to foot surgery in 1976. No change or new swelling. Medical History: Reviewed Medications: Reviewed Surgical History: Reviewed Family history: Reviewed Allergies: Reviewed Social History: no tobacco product use. No etoh. Code Status: Full Code Allergies Allergy/AdvReac Type Severity Reaction Status Date / Time morphine Allergy Intermediate hypotension, Verified 03/14/23 09:54 emesis, dry heave Xhuxrjs-WOL-HyJ Reductase AdvReac Mild muscle pain Verified 03/14/23 09:54 Inhibitor [Alvealy-Nqx-Xle Reductase Inhibitor] Home Medications Medication Instructions Recorded Confirmed Type clobetasol 0.05 % topical cream 1 appln topical DAILY PRN ezcema 05/08/19 03/21/23 History betamethasone dipropionate 0.05 % 1 appln topical BID PRN skin 01/07/20 03/21/23 Rx topical cream irritation #45 grams turmeric root extract 500 mg 500 mg PO DAILY #30 caps 04/07/22 03/21/23 Rx capsule cholecalciferol (vitamin D3) 25 25 mcg PO QAM 10/18/22 03/21/23 History mcg (1,000 unit) tablet (Vitamin D3) lisinopril 2.5 mg tablet 2.5 mg PO QAM 10/18/22 03/21/23 History omeprazole 20 mg capsule,delayed 20 mg PO QAM 10/18/22 03/21/23 History release atenolol 50 mg tablet 50 mg PO QAM #90 tabs 11/23/22 03/21/23 Rx diclofenac sodium 75 mg 75 mg PO BID pain #180 tabs 12/15/22 03/21/23 Rx tablet,delayed release escitalopram oxalate 5 mg tablet 2.5 mg PO DAILY PRN Anxiety #45 01/13/23 03/21/23 Rx (Lexapro) tabs tizanidine 4 mg tablet 4 mg PO HS muscle spasticity 01/27/23 03/21/23 History pravastatin 20 mg tablet 20 mg PO HS #90 tabs 02/03/23 03/21/23 Rx tramadol 50 mg tablet 50 - 100 mg PO Q6H PRN pain #30 02/25/23 03/21/23 Rx tabs Past Med/Surg History Medical History Anxiety DDD (degenerative disc disease) lumbar History of blood clots LLE DVT (~2007), was on AC after event/since discontinued, no issues since History of COVID-19 05/2022>SMELL IS DIMINISHED STILL History of hepatitis type unknown (?A)-- age 9/no issues since History of melanoma Hx of basal cell carcinoma Hx of fracture of humerus left s/p fall- no surgical intervention Hyperlipidemia Hyperparathyroidism Hypertension PVD (posterior vitreous detachment), left eye floaters in L eye Trochanteric bursitis, right hip Surgical History Family history of reaction to anesthesia MOTHER/NAUSEA History of abdominoplasty History of bilateral tubal ligation History of cataract surgery B/L with implants History of colonoscopy History of hysterectomy TVH with pubovaginal sling, 2002 History of knee surgery bilateral knees, laparoscopic cartilage tears 1997 and 1999 History of left shoulder replacement History of right hip replacement History of tonsillectomy History of total left hip replacement Status post Mohs surgery Family History Father Asbestosis Diabetes Heart disease Mother Diabetes Alzheimer disease Brother No problems noted. 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 NAD. Cooperative. HEENT: Atraumatic, normocephalic. Vision/hearing intact Pulm: CTAB A&P. -wheezes, -rales, -rhonchi. Symmetrical chest rise. No increased work of breathing. No respiratory distress. Cardiac: RRR, -mrg. Radial pulses intact and symmetrical. Abdominal: Midline pelvic and left lower quadrant abdominal pain without rebound, pain is slightly worsened on palpation. Abdomen is soft. No guarding Extremities: Warm, dry. Ankle dorsiflexion/plantarflexion intact bilaterally, behavioral instructor strength, elbow flexion 5/5 bilaterally. Sensation intact to soft touch in hands and feet bilaterally without asymmetry. Trace left ankle edema baseline per patient Results & Data Results & Data Vital Signs (Past 12 Hours) Vital Signs Temp Pulse Resp BP Pulse Ox O2 Del Method 03/21/23 09:16 86 03/21/23 07:50 Room Air 03/21/23 07:19 36.9 C 85 18 207/86 H 95 Room Air PG Care Time/CCT Total # of Minutes Spent Total Time Spent with Patient: Total time spent is greater than 50% in coordination of care (as documented) at patient's floor/unit and/or counseling patient: Coding Level of Care Code 31531 INT INP/OBS CARE 3/75MIN Diagnoses Acute ischemic colitis K55.039 Acute lower GI bleeding K92.2 Elevated troponin I level R77.8 GERD (gastroesophageal reflux disease) K21.9 History of blood clots Z86.718 Hyperlipidemia E78.5 Hypertension I10
[2023-03-21] MEDS ORDERED: HYDROmorphone INJ 1 MG/ML SYRINGE IV PRN (10:36)
[2023-03-21] MEDS ORDERED: ONDANSETRON INJ 2 MG/ML 2 ML VIAL IV PRN (10:36)
[2023-03-21] MEDS ORDERED: ACETAMINOPHEN 1,000 MG/100 ML VIAL IV PRN (10:36)
--- NOTE | 2023-03-21 10:55 | Surgery Consultation ---
Date of Consultation March 21, 2023 Assessment & Plan (1) Acute ischemic colitis: This is a 67y F with a PMH of pre-dm, GERD, HLD, HTN, arthritis who presents to the [facility] ED on 03/21/23 with complaints of lower abdominal pain and rectal bleeding that started this AM. She presented to the ER where she underwent a CT a/p was obtained that revealed "wall thickening and fat stranding is seen in the distal transverse and descending colon. Findings are most concerning for ischemic colitis, infectious/inflammatory etiology is possible but less likely. No evidence of perforation." WBC 16, Hbg 14.6, lactate 2, Cr 0.9. Vitals show patient is afebrile, HR 80s with last BP showing hypertension of 207/86. On examination abdomen is soft with discomfort across the lower abdomen, no guarding. Agree with hospitalization. IVF, IV abx (cipro/flagyl), and keep NPO. GI has been consulted for their opinion. Stool studies have been ordered. No indications for acute surgical intervention, we will follow along closely. (2) Acute lower GI bleeding: Supervising Physician Co-Signing Physician Notes I personally saw and evaluated the patient with Carmen Waterman PA-C and agree with the assessment and plan. 67-year-old female with some inflammation of the distal transverse and proximal descending colon, likely ischemic colitis Her CT images and results were personally reviewed and interpreted by myself, she does have some mild inflammation and thickening in the watershed area of the splenic flexure No plans for any surgical intervention at this time as she is completely stable We will keep her n.p.o., start Cipro and Flagyl and GI is already been consulted We will follow along while she is admitted to the hospital History of Present Illness Reason for Consultation: Ischemic colitis History of Present Illness This is a 67y F with a PMH of pre-dm, GERD, HLD, HTN, arthritis who presents to the [facility] ED on 03/21/23 with complaints of lower abdominal pain and rectal bleeding. This all started around 1AM with severe lower abdominal pain, associated with nausea/vomiting, chills, and blood per rectum. She presented to the ER due to ongoing symptoms. A CT a/p was obtained that revealed "wall thickening and fat stranding is seen in the distal transverse and descending colon. Findings are most concerning for ischemic colitis, infectious/inflammatory etiology is possible but less likely. No evidence of perforation." Patient never had this happen to her before. She had a prior colonoscopy in 2017 that she said showed diverticulosis, otherwise clean. Prior abdominal surgical history includes a abdominoplasty and a vaginal hysterectomy. Allergies Allergy/AdvReac Type Severity Reaction Status Date / Time morphine Allergy Intermediate hypotension, Verified 03/14/23 09:54 emesis, dry heave Izlghje-OOT-NvZ Reductase AdvReac Mild muscle pain Verified 03/14/23 09:54 Inhibitor [Exkqqdg-Bns-Rxw Reductase Inhibitor] Home Medications Medication Instructions Recorded Confirmed Type clobetasol 0.05 % topical cream 1 appln topical DAILY PRN ezcema 05/08/19 03/21/23 History betamethasone dipropionate 0.05 % 1 appln topical BID PRN skin 01/07/20 03/21/23 Rx topical cream irritation #45 grams turmeric root extract 500 mg 500 mg PO DAILY #30 caps 04/07/22 03/21/23 Rx capsule cholecalciferol (vitamin D3) 25 25 mcg PO QAM 10/18/22 03/21/23 History mcg (1,000 unit) tablet (Vitamin D3) lisinopril 2.5 mg tablet 2.5 mg PO QAM 10/18/22 03/21/23 History omeprazole 20 mg capsule,delayed 20 mg PO QAM 10/18/22 03/21/23 History release atenolol 50 mg tablet 50 mg PO QAM #90 tabs 11/23/22 03/21/23 Rx diclofenac sodium 75 mg 75 mg PO BID pain #180 tabs 12/15/22 03/21/23 Rx tablet,delayed release escitalopram oxalate 5 mg tablet 2.5 mg PO DAILY PRN Anxiety #45 01/13/23 03/21/23 Rx (Lexapro) tabs tizanidine 4 mg tablet 4 mg PO HS muscle spasticity 01/27/23 03/21/23 History pravastatin 20 mg tablet 20 mg PO HS #90 tabs 02/03/23 03/21/23 Rx tramadol 50 mg tablet 50 - 100 mg PO Q6H PRN pain #30 02/25/23 03/21/23 Rx tabs Patient History Medical History Anxiety DDD (degenerative disc disease) lumbar History of blood clots LLE DVT (~2007), was on AC after event/since discontinued, no issues since History of COVID-19 05/2022>SMELL IS DIMINISHED STILL History of hepatitis type unknown (?A)-- age 9/no issues since History of melanoma Hx of basal cell carcinoma Hx of fracture of humerus left s/p fall- no surgical intervention Hyperlipidemia Hyperparathyroidism Hypertension PVD (posterior vitreous detachment), left eye floaters in L eye Trochanteric bursitis, right hip Surgical History Family history of reaction to anesthesia MOTHER/NAUSEA History of abdominoplasty History of bilateral tubal ligation History of cataract surgery B/L with implants History of colonoscopy History of hysterectomy TVH with pubovaginal sling, 2002 History of knee surgery bilateral knees, laparoscopic cartilage tears 1997 and 1999 History of left shoulder replacement History of right hip replacement History of tonsillectomy History of total left hip replacement Status post Mohs surgery Family History Father Asbestosis Diabetes Heart disease Mother Diabetes Alzheimer disease Brother No problems noted. 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 Feels Safe at Home: Yes Childhood Exposure to Second-Hand Smoke: Yes Diet: regular Dental Care, Regularly: Yes Physical Activity Frequency: Daily Seatbelt Use: always Sunscreen Use: Yes Assistive Devices: Glasses Review of Systems Constitutional: + chills; no fever Respiratory: no dyspnea Cardiovascular: no chest pain Gastrointestinal: + abdominal pain, + nausea, + vomiting, + diarrhea/loose stools and + blood in stools Physical Exam Physical Exam: awake/alert, sitting in chair Constitutional: well developed and well nourished; no acute distress Respiratory: normal respiratory effort Cardiovascular: Rate/Rhythm: regular rate Gastrointestinal (Abdomen): Inspection/Auscultation: + abdomen distended (mild) Percussion/Palpation: + abdomen tender (discomfort in lower abdomen ) and abdomen soft Results & Data Vital Signs (Past 12 Hours) Vital Signs Temp Pulse Resp BP Pulse Ox O2 Del Method 03/21/23 09:16 86 03/21/23 07:50 Room Air 03/21/23 07:19 36.9 C 85 18 207/86 H 95 Room Air Diagnostic Findings CT abd pelvis IV con only CLINICAL HISTORY: LLQ pain, GIB TECHNIQUE: Helical axial images of the abdomen and pelvis were obtained and displayed. Automated dose lowering techniques and/or adjustment according to patient size were utilized for this exam. This exam was performed with intravenous contrast. CT DOSE: 1366.67 mGy.cm COMPARISON: None available at the time of this dictation. FINDINGS: Lower chest: Bibasilar atelectasis versus scarring is seen. Liver: Hepatic steatosis is noted. Gallbladder and biliary tree: No calcified gallstones. Normal caliber wall. No intra- or extrahepatic biliary ductal dilation. Pancreas: Unremarkable, no focal lesions. Spleen: Unremarkable. Adrenals: Unremarkable. Kidneys and ureters: Nonobstructive nephrolithiasis is seen. Hypodensities are seen likely representing cysts. Bladder: Unremarkable. Reproductive organs: Patient is status post hysterectomy. Bowel: Diverticulosis is seen without diverticulitis. The appendix is normal. There is wall thickening and surrounding fat stranding most prominent in the transverse colon and descending colon. A small hiatal hernia is seen. Lymph nodes Retroperitoneal: Unremarkable. Pelvic: Unremarkable. Mesenteric: Unremarkable. Peritoneum: Fat stranding is seen most prominently about the splenic flexure. No pneumoperitoneum. No abnormal fluid collections. Vessels: Atherosclerotic calcifications are seen. Abdominal wall: Unremarkable. Bones: Bilateral hip arthroplasties are seen. Degenerative changes are seen in the spine. Partial lumbarization of S1 is incidentally noted. IMPRESSION: Wall thickening and fat stranding is seen in the distal transverse and descending colon. Findings are most concerning for ischemic colitis, infectious/inflammatory etiology is possible but less likely. No evidence of perforation. ACT 112: Negative or not required by law. Electronically signed by: Prashanth Bone M.D. 03/21/2023 8:49 AM PG Care Time/CCT Total # of Minutes Spent Total Time Spent with Patient: Total time spent is greater than 50% in coordination of care (as documented) at patient's floor/unit and/or counseling patient: Coding Level of Care Code 97214 OP VST NEW MOD 45-59 MIN Diagnoses Acute ischemic colitis K55.039 Acute lower GI bleeding K92.2
--- NOTE | 2023-03-21 11:22 | XRay Report ---
XR chest 1V portable HISTORY: 67 years-old Female hypoxia acute hypoxia COMPARISON: 07/29/2019 TECHNIQUE: AP view of the chest FINDINGS: Cardiac silhouette is enlarged. Atherosclerosis of the aorta. No pneumothorax, pleural effusion, airs pace consolidation or pulmonary edema. Degenerative changes of the spine and right shoulder. Left glen ulder arthroplasty. Chronic appearing left-sided rib fractures. IMPRESSION: No acute process. ACT 112: Negative or not required by law. The above report was generated using voice recognition software. It may contain grammatical, syntax o r spelling errors. Electronically signed by: Maximilian Montenegro M.D. 03/21/2023 11:20 AM
[2023-03-21 11:25] LABS: Base Excess VBG 0.4 mEq/L; HCO3 VBG 28 mmol/L; Oxygen Saturation VBG < 60.0 %; PCO2 VBG 55 mmHg (38-50); PO2 VBG 28 mmHg; pH VBG 7.31 (7.36-7.41)
[2023-03-21] MEDS: METOPROLOL TARTRATE 1 MG/ML VIAL IV SCH ×2 (11:41→17:17)
[2023-03-21 11:46] LABS: Adenovirus F 40/41 PCR Not Detected (NotDetected); Astrovirus PCR Not Detected (NotDetected); Campylobacter PCR Not Detected (NotDetected); Cryptosporidium PCR Not Detected (NotDetected); Cyclospora cayetanensis PCR Not Detected (NotDetected); Entamoeba histolytica PCR Not Detected (NotDetected); Enteroaggregative E.coli(EAEC) Not Detected (NotDetected); Enteropathogenic E.coli (EPEC) Not Detected (NotDetected); Enterotoxigenic E.coli (ETEC) Not Detected (NotDetected); Giardia lamblia PCR Not Detected (NotDetected); Norovirus GI/GII PCR Not Detected (NotDetected); Plesiomonas shigelloides PCR Not Detected (NotDetected); Rotavirus A PCR Not Detected (NotDetected); Salmonella PCR Not Detected (NotDetected); Sapovirus PCR Not Detected (NotDetected); Shiga-like Toxin E.coli (STEC) Not Detected (NotDetected); Shigella/Enteroinvasive E.coli Not Detected (NotDetected); Vibrio cholerae PCR Not Detected (NotDetected); Vibrio species PCR Not Detected (NotDetected); Yersinia enterocolitica PCR Not Detected (NotDetected)
[2023-03-21] MEDS: INSULIN ASPART PER UNIT CHARGE SC SCH ×2 (11:56→18:09)
[2023-03-21] MEDS: PLASMA-LYTE A 1,000 ML IV SCH ×2 (12:09→20:46)
--- NOTE | 2023-03-21 12:14 | Gastrointestinal Consultation ---
Date of Consultation March 21, 2023 Assessment & Plan (1) Acute lower GI bleeding: (2) Abdominal pain: (3) Acute ischemic colitis: Plan Patient presented to the ED this morning with complaints of sudden onset abdominal pain, bloody bowel movements, nausea, vomiting. Discussed case with Dr. Lal who helped advise on plan. - recommend continuing IVF, continuing IV Cipro and flagyl, and bowel rest. - no plan for colonoscopy at this time. - monitor hgb/hct, transfuse as needed. Supervising Physician Co-Signing Physician Notes Agree with CLAY Chiang as above Gen: A+Ox3, Cooperative, NAD Chest: CTA B/L CVS: RRR Abd: Soft, Tender LLQ, ND, +BS Ext: -c/c/e Agree that most likely cause is ischemic colitis. Over 90% of cases of ischemic colitis resolve spontaneously Recommend 5 days of Cipro/Flagyl therapy to prevent bacterial translocation Continue current therapy and supportive care Proceed with colonoscopy as an outpatient in 8 weeks. History of Present Illness Reason for Consultation: LGIB/ischemic colitis Requesting Physician: Chintan Rachel DO Attending Physician: Georges Aldrich MD History of Present Illness Patient is a 67 year old female who presented to the ED earlier this morning with complaints of sudden lower abdominal pain that started around 1 am. she did have one episode of nausea/vomiting associated with the onset of pain. she tells me that since her symptoms started that she has had about 28 bowel movements that have had dark red blood with them. no black stools. Yesterday she tells me she felt well and did not have any symptoms out of the ordinary. She was evaluated at the ED and had CT scan done this morning suggestive of ischemic colitis. she had wbc of 16.4, hgb 14.6, hct 43.5, platelets 169. stool studies were unremarkable. Since being at the hospital she has had some more bowel movements with blood. no further emesis but has ongoing nausea. she does report a history of heavy nsaid use in the past and daily use of diclofenac sodium for arthritis. Surgery also saw the patient and did not feel any indications for surgery at this time. she denies any hematemesis, dysphagia, or heartburn. Last colonoscopy was done in 2017 in [facility] and shown internal hemorrhoids. Allergies Allergy/AdvReac Type Severity Reaction Status Date / Time morphine Allergy Intermediate hypotension, Verified 08/07/23 09:54 emesis, dry heave Acqzudf-EXI-HqE Reductase AdvReac Mild muscle pain Verified 03/14/23 09:54 Inhibitor [Zeeaoaf-Tsa-Pnk Reductase Inhibitor] Home Medications Medication Instructions Recorded Confirmed Type clobetasol 0.05 % topical cream 1 appln topical DAILY PRN ezcema 05/08/19 03/21/23 History betamethasone dipropionate 0.05 % 1 appln topical BID PRN skin 01/07/20 03/21/23 Rx topical cream irritation #45 grams turmeric root extract 500 mg 500 mg PO DAILY #30 caps 04/07/22 03/21/23 Rx capsule cholecalciferol (vitamin D3) 25 25 mcg PO QAM 10/18/22 03/21/23 History mcg (1,000 unit) tablet (Vitamin D3) lisinopril 2.5 mg tablet 2.5 mg PO QAM 10/18/22 03/21/23 History omeprazole 20 mg capsule,delayed 20 mg PO QAM 10/18/22 03/21/23 History release atenolol 50 mg tablet 50 mg PO QAM #90 tabs 11/23/22 03/21/23 Rx diclofenac sodium 75 mg 75 mg PO BID pain #180 tabs 12/15/22 03/21/23 Rx tablet,delayed release escitalopram oxalate 5 mg tablet 2.5 mg PO DAILY PRN Anxiety #45 01/13/23 03/21/23 Rx (Lexapro) tabs tizanidine 4 mg tablet 4 mg PO HS muscle spasticity 01/27/23 03/21/23 History pravastatin 20 mg tablet 20 mg PO HS #90 tabs 02/03/23 03/21/23 Rx tramadol 50 mg tablet 50 - 100 mg PO Q6H PRN pain #30 02/25/23 03/21/23 Rx tabs Patient History Medical History Anxiety DDD (degenerative disc disease) lumbar History of blood clots LLE DVT (~2007), was on AC after event/since discontinued, no issues since History of COVID-19 05/2022>SMELL IS DIMINISHED STILL History of hepatitis type unknown (?A)-- age 9/no issues since History of melanoma Hx of basal cell carcinoma Hx of fracture of humerus left s/p fall- no surgical intervention Hyperlipidemia Hyperparathyroidism Hypertension PVD (posterior vitreous detachment), left eye floaters in L eye Trochanteric bursitis, right hip Surgical History Family history of reaction to anesthesia MOTHER/NAUSEA History of abdominoplasty History of bilateral tubal ligation History of cataract surgery B/L with implants History of colonoscopy History of hysterectomy TVH with pubovaginal sling, 2002 History of knee surgery bilateral knees, laparoscopic cartilage tears 1997 and 1999 History of left shoulder replacement History of right hip replacement History of tonsillectomy History of total left hip replacement Status post Mohs surgery Family History Father Asbestosis Diabetes Heart disease Mother Diabetes Alzheimer disease Brother No problems noted. 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 Other Information That Helps Us Care for You: No Feels Safe at Home: Yes Childhood Exposure to Second-Hand Smoke: Yes Diet: regular Dental Care, Regularly: Yes Physical Activity Frequency: Daily Seatbelt Use: always Sunscreen Use: Yes Assistive Devices: Glasses Review of Systems Constitutional: + chills; no fever Respiratory: no dyspnea Cardiovascular: no chest pain Gastrointestinal: + abdominal pain, + nausea, + vomiting, + diarrhea/loose stools and + blood in stools Physical Exam Constitutional: WD/WN, vitals as above Respiratory: normal respiratory effort, lungs clear to auscultation Cardiovascular: RRR, no murmur, no edema Gastrointestinal (Abdomen): mild diffuse tenderness, no guarding, soft, normal bowel sounds. Skin: no rashes, warm and dry Psychiatric: Orientation: alert and oriented x 3 Results & Data Vital Signs (Past 12 Hours) Vital Signs Temp Pulse Pulse Resp BP BP Pulse Ox 03/21/23 12:08 76 202/84 H 03/21/23 11:59 81 202/84 H 95 03/21/23 11:01 81 25 H 97 03/21/23 11:01 196/81 H 03/21/23 11:00 80 22 97 03/21/23 10:40 83 87 L 03/21/23 09:05 87 25 H 94 03/21/23 09:05 205/95 H 03/21/23 08:06 78 20 94 03/21/23 09:16 86 03/21/23 07:50 03/21/23 07:19 98.4 F 85 18 207/86 H 95 O2 Del Method O2 Flow Rate 03/21/23 12:08 03/21/23 11:59 Room Air 03/21/23 11:01 Nasal Cannula 3 03/21/23 11:01 03/21/23 11:00 Nasal Cannula 3 03/21/23 10:40 Room Air 03/21/23 09:05 Room Air 03/21/23 09:05 03/21/23 08:06 Room Air 03/21/23 09:16 03/21/23 07:50 Room Air 03/21/23 07:19 Room Air PG Care Time/CCT Total # of Minutes Spent Total Time Spent with Patient: Total time spent is greater than 50% in coordination of care (as documented) at patient's floor/unit and/or counseling patient: Coding Level of Care Code 81005 ER DEPT VISIT LOW LVL 3 Diagnoses Acute lower GI bleeding K92.2 Abdominal pain R10.30 Abdominal location: lower abdomen, unspecified Acute ischemic colitis K55.039 (2) Abdominal pain Abdominal location: lower abdomen, unspecified Qualified Code(s): R10.30 - Lower abdominal pain, unspecified
--- NOTE | 2023-03-21 12:59 | XCELERA ---
[id number]
[2023-03-21] MEDS ORDERED: ENALAPRILAT 0.625 MG in SYRINGE 9.5 ML IV STA (13:50)
--- NOTE | 2023-03-21 14:25 | Electrocardiogram Report ---
Test Reason : Blood Pressure : / mmHG Vent. Rate : 079 BPM Atrial Rate : 079 BPM P-R Int : 164 ms QRS Dur : 086 ms QT Int : 342 ms P-R-T Axes : -13 -09 039 degrees QTc Int : 392 ms Normal sinus rhythm Moderate voltage criteria for LVH, may be normal variant ( R in aVL ) Nonspecific ST abnormality Abnormal ECG When compared with ECG of 12-JUL-2019 12:22, Vent. rate has increased BY 28 BPM Questionable change in QRS axis Confirmed by Chintan Slater ([id number]) on 03/21/2023 2:24:50 PM Referred By: Confirmed By:Chintan Slatre
[2023-03-21 17:06] LABS: Hematocrit (blood only) 39.2 % (37.0-47.0); Hemoglobin 13.2 g/dl (12.0-16.0)
[2023-03-21] MEDS: metroNIDAZOLE 500 MG/100 ML BAG IV SCH (17:17)
[2023-03-21] MEDS ORDERED: Nursing to Pharmacy Communication SCH (19:30)
[2023-03-21] MEDS: HYDROmorphone INJ 0.5 MG/0.5 ML SYR IV PRN (20:39)
[2023-03-21] MEDS: CIPROFLOXACIN / D5W 400 MG/200 ML BAG IV SCH (20:48)
[2023-03-21 23:08] LABS: Hematocrit (blood only) 38.3 % (37.0-47.0); Hemoglobin 12.8 g/dl (12.0-16.0)
[2023-03-22] MEDS: METOPROLOL TARTRATE 1 MG/ML VIAL IV SCH ×4 (00:29→18:01)
[2023-03-22] MEDS: INSULIN ASPART PER UNIT CHARGE SC SCH ×5 (00:30→20:32)
[2023-03-22] MEDS: metroNIDAZOLE 500 MG/100 ML BAG IV SCH ×3 (00:30→16:03)
[2023-03-22] MEDS: HYDROmorphone INJ 0.5 MG/0.5 ML SYR IV PRN ×2 (03:50→19:46)
[2023-03-22] MEDS: PLASMA-LYTE A 1,000 ML IV SCH ×2 (03:50→11:56)
[2023-03-22 07:15] LABS: Basophils # (auto) 0.03 K/uL (0-0.2); Basophils % (auto) 0.2 %; Eosinophils % (auto) 0.7 %; Hematocrit (blood only) 38.5 % (37.0-47.0); Hemoglobin 12.5 g/dl (12.0-16.0); Immature Granulocytes # (auto) 0.08 K/uL (0.01-0.20); Immature Granulocytes % (auto) 0.5 %; Lymphocytes # (auto) 1.38 K/uL (1.2-3.4); Lymphocytes % (auto) 9.4 %; Mean Corpuscular Hemoglobin 30.4 pg (25.0-34.0); Mean Corpuscular Hgb Conc 32.5 g/dL (32.0-36.0); Mean Corpuscular Volume 93.7 fL (80.0-100.0); Mean Platelet Volume 10.7 fL (9.4-12.4); Monocytes % (auto) 6.8 %; Neutrophils # (auto) 12.02 K/uL (1.40-6.50); Neutrophils % (auto) 82.4 %; Platelet Count 167 K/uL (130-400); RDW Coefficient of Variation 12.8 % (11.5-14.5); RDW Standard Deviation 43.8 fL (36.4-46.3); Red Blood Count 4.11 M/uL (4.20-5.40); White Blood Count 14.61 K/ul (4.8-10.8)
[2023-03-22 07:37] LABS: BUN Creatinine Ratio 19.4 (10-20); Calcium 9.6 mg/dl (8.6-10.3); Creatinine Clr Calc Pharmacy 88.2 ml/min; Est GFR (Non-African American) 85.4 ml/min; Phosphorus 2.2 mg/dl (2.5-4.9); Potassium 4.2 mmol/L (3.5-5.1)
--- NOTE | 2023-03-22 07:50 | Hospitalist Progress Note ---
Date of Service March 22, 2023 Assessment & Plan (1) Acute ischemic colitis: Plan: GI bleeding, suspected acute ischemic colitis Leukocytosis of 16, lactate 2.0 CT A/P: Suspicious for ischemic colitis, infectious/inflammatory not definitively ruled out Surgery, GI consulted, both recommend conservative management, GI follow up outpatient Continue Cipro/Flagyl IV Patient does have a history of provoked DVT many years ago without other thrombosis or complications. Is not currently on a blood thinner Trend H&H daily now, Hgb has remained stable through today Continue clear liquid diet Tylenol, hydromorphone, Zofran on-call as needed for nausea Stool bio fire PCR negative (2) Acute lower GI bleeding: Plan: see above (3) Acute respiratory failure with hypoxia: Plan: Patient with 88-90% oxygen levels when laying back following fentanyl administration in ER, now resolved No history of heart failure or sleep apnea to patient's knowledge Chest x-ray negative, Echo no LVEF dysfunction (4) Elevated troponin I level: Plan: Patient denies chest pain at any point. No shortness of breath. No arm pain, no neck pain Mildly elevated troponin of 24 point suspect demand ischemia 2/2 GI bleeding 2-hour repeat ordered at time of admission, no territorial signs of ischemia on EKG (5) GERD (gastroesophageal reflux disease): Plan: Cont daily PPI (6) History of blood clots: Plan: Deferring anticoagulation in the setting of GI bleeding (7) Hypertension: Plan: Lisinopril held while n.p.o., atenolol converted to IV metoprolol Permissive HTN in GI bleed patient, she is asymptomatic and BP at least in part 2/2 pain (8) DDD (degenerative disc disease): Plan: Hx chronic back pain Tizanidine resumed Home tramadol converted to hydromorphone for acute pain, transition back when able Admission and Anticipated Discharge Date Admission Date: March 21, 2023 Subjective Patient without any acute events overnight. Reports to little bit of abdominal cramping with a clear liquid diet, but certainly pain is better today than it was yesterday. She notes a bowel movement today, liquid, bright red. She denies nausea, denies abdominal distention. Physical Exam Constitutional: WD/WN, vitals as above Respiratory: normal respiratory effort, lungs clear to auscultation Cardiovascular: RRR, no murmur, no edema Gastrointestinal (Abdomen): Normal bowel sounds, abdomen soft, mildly tender diffusely, not distended, no rebound or guarding Skin: no rashes, warm and dry Psychiatric: A+Ox3, euthymic affect Results & Data Results & Data Vital Signs (Past 12 Hours) Vital Signs Temp Pulse Pulse Resp BP BP Pulse Ox 03/22/23 07:26 80 03/22/23 07:05 36.6 C 73 20 175/78 H 92 03/22/23 06:15 78 180/74 H 03/22/23 03:00 36.7 C 82 18 180/74 H 92 03/22/23 01:01 76 155/75 H 03/22/23 00:29 79 174/75 H 03/21/23 23:42 36.6 C 85 17 174/75 H 96 03/21/23 23:00 79 03/21/23 20:00 03/21/23 20:58 83 18 175/75 H 97 O2 Del Method 03/22/23 07:26 03/22/23 07:05 Room Air 03/22/23 06:15 03/22/23 03:00 Room Air 03/22/23 01:01 03/22/23 00:29 03/21/23 23:42 Room Air 03/21/23 23:00 03/21/23 20:00 Room Air 03/21/23 20:58 Room Air PG Care Time/CCT Total # of Minutes Spent Total Time Spent with Patient: Total time spent is greater than 50% in coordination of care (as documented) at patient's floor/unit and/or counseling patient: Coding Level of Care Code 23868 SUB INP/OBS CARE 3/50MIN Diagnoses Acute ischemic colitis K55.039 Acute lower GI bleeding K92.2 Acute respiratory failure with hypoxia J96.01 Elevated troponin I level R77.8 GERD (gastroesophageal reflux disease) K21.9 History of blood clots Z86.718 Hypertension I10 DDD (degenerative disc disease)
[2023-03-22] MEDS: CIPROFLOXACIN / D5W 400 MG/200 ML BAG IV SCH ×2 (09:23→22:12)
--- NOTE | 2023-03-22 09:24 | Gastroenterology Progress Note ---
Date of Service March 22, 2023 Assessment & Plan (1) Abdominal pain: (2) Acute ischemic colitis: (3) Acute lower GI bleeding: Plan Suspect that her symptoms will continue to improve. hgb stable. -Recommend a total of 5 days of Cipro/Flagyl therapy to prevent bacterial translocation. -Continue current therapy and supportive care. -Patient will need a colonoscopy as an outpatient in 8 weeks. - okay to advance to a clear liquid diet to see how she does. Admission and Anticipated Discharge Date Admission Date: March 21, 2023 Supervising Physician Co-Signing Physician Notes Agree with Luis Alberto Zapata, PAC as above Abd: Soft, NT, ND, +BS Continue current therapy and supportive care F/U as outpatient for colonoscopy in 8 weeks. Subjective Patient tells me that she is feeling much improved today. she had one bowel movement today with blood in this, but this is improved from yesterday. hgb 03/22 12.5 hgb 03/21 12.8 she tells me that she still has some abdominal discomfort in the lower abdomen but this is also improved today. she is requesting an advancement of diet. she noticed some heartburn this morning but feels PPI has been helpful. she denies nausea, vomiting. Physical Exam Constitutional: WD/WN, vitals as above Respiratory: normal respiratory effort, lungs clear to auscultation Cardiovascular: RRR, no murmur, no edema Gastrointestinal (Abdomen): normal bowel sounds, soft, nontender, no hepatosplenomegaly Skin: no rashes, warm and dry Psychiatric: Orientation: alert and oriented x 3 Affect: euthymic affect Results & Data Results & Data Vital Signs (Past 12 Hours) Vital Signs Temp Pulse Pulse Resp BP BP Pulse Ox 03/22/23 07:26 80 03/22/23 07:05 97.9 F 73 20 175/78 H 92 03/22/23 06:15 78 180/74 H 03/22/23 03:00 98.1 F 82 18 180/74 H 92 03/22/23 01:01 76 155/75 H 03/22/23 00:29 79 174/75 H 03/21/23 23:42 97.9 F 85 17 174/75 H 96 03/21/23 23:00 79 O2 Del Method 03/22/23 07:26 03/22/23 07:05 Room Air 03/22/23 06:15 03/22/23 03:00 Room Air 03/22/23 01:01 03/22/23 00:29 03/21/23 23:42 Room Air 03/21/23 23:00 PG Care Time/CCT Total # of Minutes Spent Total Time Spent with Patient: Total time spent is greater than 50% in coordination of care (as documented) at patient's floor/unit and/or counseling patient: Coding Level of Care Code 93382 SUB INP/OBS CARE 09/01MIN Diagnoses Abdominal pain R10.30 Abdominal location: lower abdomen, unspecified Acute ischemic colitis K55.039 Acute lower GI bleeding K92.2 Time Spent (min) 28 (1) Abdominal pain Abdominal location: lower abdomen, unspecified Qualified Code(s): R10.30 - Lower abdominal pain, unspecified
--- NOTE | 2023-03-22 10:28 | Surgery Progress Note ---
Date of Service March 22, 2023 Assessment & Plan (1) Acute ischemic colitis: Plan: Patient reports she is feeling a lot better Has not passed bloody stool in the last 12 hours Denies Nausea, vomiting Has RLQ and LLQ tenderness to palpation Patient has elevated BP, being managed by medicine other adams VSS WBC today 14.6 down from yesterday 14.6 continue IV antibiotics will continue to monitor Admission and Anticipated Discharge Date Admission Date: March 21, 2023 Supervising Physician Co-Signing Physician Notes I personally saw and evaluated the patient with Kwame MANZANO and agree with the assessment and plan. 67-year-old female with some inflammation of the distal transverse and proximal descending colon, likely ischemic colitis She is improved today We will continue n.p.o. status, monitor for any fevers or tachycardia or other signs of ischemic bowel We will continue to follow Subjective patient resting in bed, reports she is feeling a lot better Has not passed bloody stool in the last 12 hours Denies Nausea, vomiting Has RLQ and LLQ tenderness to palpation Results & Data Vital Signs (Past 12 Hours) Vital Signs Temp Pulse Pulse Resp BP BP Pulse Ox 03/22/23 07:26 80 03/22/23 07:05 97.9 F 73 20 175/78 H 92 03/22/23 06:15 78 180/74 H 03/22/23 03:00 98.1 F 82 18 180/74 H 92 03/22/23 01:01 76 155/75 H 03/22/23 00:29 79 174/75 H 03/21/23 23:42 97.9 F 85 17 174/75 H 96 03/21/23 23:00 79 O2 Del Method 03/22/23 07:26 03/22/23 07:05 Room Air 03/22/23 06:15 03/22/23 03:00 Room Air 03/22/23 01:01 03/22/23 00:29 03/21/23 23:42 Room Air 03/21/23 23:00 PG Care Time/CCT Total # of Minutes Spent Total Time Spent with Patient: Total time spent is greater than 50% in coordination of care (as documented) at patient's floor/unit and/or counseling patient: Coding Level of Care Code 44562 SUB INP/OBS CARE 25MIN Diagnoses Acute ischemic colitis K55.039
[2023-03-22 11:22] LABS: Hematocrit (blood only) 39.5 % (37.0-47.0)
[2023-03-22] MEDS: PANTOprazole 40 MG in SYRINGE 0 ML IV SCH (12:04)
[2023-03-22] MEDS ORDERED: Nursing to Pharmacy Communication SCH (12:45)
[2023-03-22] MEDS ORDERED: ESCITALOPRAM OXALATE ORAL SOLN 5 MG/5 ML PO PRN (16:06)
[2023-03-22] MEDS ORDERED: tiZANidine HCL 4 MG TABLET PO SCH (21:00)
[2023-03-23] MEDS: METOPROLOL TARTRATE 1 MG/ML VIAL IV SCH ×2 (00:10→06:10)
[2023-03-23] MEDS: metroNIDAZOLE 500 MG/100 ML BAG IV SCH ×2 (00:11→08:41)
[2023-03-23 06:58] LABS: Basophils # (auto) 0.03 K/uL (0-0.2); Basophils % (auto) 0.3 %; Eosinophils # (auto) 0.36 K/uL (0-0.50); Eosinophils % (auto) 3.1 %; Hemoglobin 12.3 g/dl (12.0-16.0); Immature Granulocytes # (auto) 0.09 K/uL (0.01-0.20); Immature Granulocytes % (auto) 0.8 %; Lymphocytes # (auto) 1.22 K/uL (1.2-3.4); Lymphocytes % (auto) 10.4 %; Mean Corpuscular Hemoglobin 31.1 pg (25.0-34.0); Mean Corpuscular Hgb Conc 33.2 g/dL (32.0-36.0); Mean Corpuscular Volume 93.4 fL (80.0-100.0); Mean Platelet Volume 10.8 fL (9.4-12.4); Monocytes # (auto) 1.05 K/uL (0.11-0.59); Neutrophils # (auto) 8.94 K/uL (1.40-6.50); Neutrophils % (auto) 76.4 %; Platelet Count 147 K/uL (130-400); RDW Coefficient of Variation 12.5 % (11.5-14.5); RDW Standard Deviation 42.9 fL (36.4-46.3); Red Blood Count 3.96 M/uL (4.20-5.40); White Blood Count 11.69 K/ul (4.8-10.8)
[2023-03-23 07:15] LABS: BUN Creatinine Ratio 16.4 (10-20); Calcium 9.8 mg/dl (8.6-10.3); Creatinine Clr Calc Pharmacy 86.6 ml/min; Est GFR (African American) 97.4 ml/min; Potassium 4.1 mmol/L (3.5-5.1)
[2023-03-23] MEDS: HYDROmorphone INJ 0.5 MG/0.5 ML SYR IV PRN (07:45)
[2023-03-23] MEDS: INSULIN ASPART PER UNIT CHARGE SC SCH ×2 (07:47→11:53)
[2023-03-23] MEDS: CIPROFLOXACIN / D5W 400 MG/200 ML BAG IV SCH (09:07)
--- NOTE | 2023-03-23 10:23 | Surgery Progress Note ---
Date of Service March 23, 2023 Assessment & Plan (1) Acute ischemic colitis: Plan: Patient reports she is feeling worse than yesterday Reports some nausea this AM and did not take much of her clear liquid diet, Patient made NPO. Denies fevers, chills, SOB, Chest pain, vomiting. Reports having abdominal cramping this AM, and LLQ and left mid abdominal pain to palpation. Took pain medication and reported pain has subsided unless palpated. Passing flatus with small amount of blood, no bowel movements last one was 03/21/23 Continue IV antibiotics, WBC today 11, down from yesterday (14) Vital signs stable except elevated blood pressure, medicine is managing Will continue to monitor. Admission and Anticipated Discharge Date Admission Date: March 21, 2023 Supervising Physician Co-Signing Physician Notes I personally saw and evaluated the patient with Kwame MANZANO and agree with the assessment and plan. 67-year-old female with some inflammation of the distal transverse and proximal descending colon, likely ischemic colitis She is stable with a decreasing leukocytosis Keep her n.p.o. on keep her on IV antibiotics No plans for any surgery Subjective Patient reports she is feeling worse than yesterday Reports some nausea this AM and did not take much of her clear liquid diet Reports having abdominal cramping this AM Passing flatus with small amount of blood, no bowel movements last one was 03/21/23 Denies SOB, Chest pain, vomiting. Review of Systems Constitutional: no fever, no chills and no sweats Respiratory: no dyspnea Cardiovascular: no chest pain Gastrointestinal: + abdominal pain, + nausea and + cramping; no vomiting Genitourinary: no problem reported Physical Exam Constitutional: cooperative; no acute distress Respiratory: normal respiratory effort and able to speak in complete sentences; no respiratory distress and does not use accessory muscles Cardiovascular: Rate/Rhythm: regular rate Gastrointestinal (Abdomen): Percussion/Palpation: + abdomen tender (Reports abdominal cramping and LLQ and left midabdominal pain to palpation) and abdomen soft Results & Data Vital Signs (Past 12 Hours) Vital Signs Temp Pulse Pulse Resp BP BP Pulse Ox 03/23/23 08:14 97.9 F 73 20 153/73 H 94 03/23/23 07:05 82 03/23/23 06:36 74 165/72 H 03/23/23 06:10 75 173/80 H 03/23/23 03:00 98.6 F 75 18 173/80 H 92 03/23/23 00:37 75 165/72 H 03/23/23 00:36 75 165/72 H 03/23/23 00:10 84 171/83 H 03/22/23 23:00 97.9 F 84 19 171/83 H 90 03/22/23 22:49 86 O2 Del Method 03/23/23 08:14 Room Air 03/23/23 07:05 03/23/23 06:36 03/23/23 06:10 03/23/23 03:00 Room Air 03/23/23 00:37 03/23/23 00:36 03/23/23 00:10 03/22/23 23:00 Room Air 03/22/23 22:49 PG Care Time/CCT Total # of Minutes Spent Total Time Spent with Patient: Total time spent is greater than 50% in coordination of care (as documented) at patient's floor/unit and/or counseling patient: Coding Level of Care Code 79783 SUB INP/OBS CARE 2/35MIN Diagnoses Acute ischemic colitis K55.039
[2023-03-23] MEDS: ATENOLOL 50 MG TABLET PO SCH (10:47)
[2023-03-23] MEDS: PANTOprazole 40 MG in SYRINGE 0 ML IV SCH (10:49)
[2023-03-23] MEDS: traMADol HCL 50 MG TABLET PO PRN ×2 (10:51→18:47)
[2023-03-23] MEDS: LACTATED RINGER'S 1,000 ML IV SCH ×2 (12:00→21:41)
[2023-03-23] MEDS: metroNIDAZOLE 500 MG TAB PO SCH ×2 (13:27→19:38)
[2023-03-23] MEDS: CIPROFLOXACIN 500 MG TAB PO SCH (19:37)
[2023-03-23] MEDS: PRAVASTATIN SOD 20 MG TAB PO SCH (19:38)
[2023-03-23] MEDS ORDERED: hydrALAZINE HCL 20 MG/ML VIAL IV PRN (19:43)
--- NOTE | 2023-03-23 19:46 | Hospitalist Progress Note ---
Date of Service March 23, 2023 Assessment & Plan (1) Acute ischemic colitis: Plan: P/w left sided abd pain, leukocytosis, and BRBPR/GI bleeding, suspected acute ischemic colitis seen on CT abd/pel with transverse and descending colon affected With loose stools--> Stool BioFire PCR and C. diff negative Leukocytosis greatly improved, no fevers Hgb mild drop from 14 to 12 Was improving, now increased nausea--> reduce diet back to NPO with chips/sips down from clears Surgery, GI consulted, both recommend conservative management, GI follow up outpatient for colonoscopy in 8 weeks Continue Cipro/Flagyl to prevent translocation of gut bacteria/bacteremia but convert to po abx today as IV meds caustic and causing her to "blow" numerous IVs can likely adv diet again to clears tomorrow Tylenol, hydromorphone, tramadol for pain and Zofran prn nausea -restart IVFs with LR at 100mL/hr while NPO -follow CBC, BMP, Mag, phos in AM and replace lytes as needed (2) Acute lower GI bleeding: Plan: see above (3) Arm pain: Plan: right upper arm pain from previous IV sites infiltrating-no erythema or cord to suggest superficial thrombophlebitis -advised warm compresses, elevation -can try topical voltaren to site -monitor for signs of thrombophlebitis given h/o DVT (4) Osteoarthritis of left hip: Plan: holding home diclofenac for GIB start topical voltaren to left hip and bilat knees tylenol as needed (5) Acute respiratory failure with hypoxia: Plan: Patient with 88-90% oxygen levels on admission following fentanyl administration in ER, now resolved No history of heart failure or sleep apnea to patient's knowledge Chest x-ray negative, Echo no LVEF dysfunction (6) Elevated troponin I level: Plan: Patient denies chest pain at any point. No shortness of breath. No arm pain, no neck pain Mildly elevated troponin of 24 and 27 on repeat, suspect demand ischemia 2/2 GI bleeding -no signs of ischemia on EKG (7) GERD (gastroesophageal reflux disease): Plan: Cont daily PPI IV (8) History of blood clots: Plan: Deferring anticoagulation in the setting of GI bleeding add SCDs for prophylaxis (9) Hypertension: Plan: BPs remain elevated Lisinopril and atenolol held while n.p.o., has been on scheduled IV metoprolol -ok to restart home po atenolol -continue to hold lisinopril for now -prn IV hydralazine added prn SBP>180 (10) DDD (degenerative disc disease): Plan: Hx chronic back pain continue Tizanidine resumed Home tramadol restarted (11) Hyperlipidemia: Plan: resume pravastatin Plan DVT proph-SCDs added Dispo-continued stay PCU Discussed care with Surgery [employer] Admission and Anticipated Discharge Date Admission Date: March 21, 2023 Subjective Pt had increased nausea and LLQ cramping this AM and Surgery made her NPO again. SHe reports passing 2 small amounts of blood per rectum today and one more moderate amount. Denies CP, SOB, lightheadedness. Nausea and pain improved throughout the day. Having right elbow pain after having numerous IVs fail in the last 24 hrs. Pt also c/o pain all over from arthritis and being off her diclofenac for 3 days. Tele with NSR, PACS and short runs of PAT, rates 70s Physical Exam Constitutional: WD/WN, vitals as above Neck: trachea midline, no thyromegaly Respiratory: normal respiratory effort, lungs clear to auscultation Cardiovascular: RRR, no murmur, no edema Chest (Breasts): Chest: normal inspection of chest Gastrointestinal (Abdomen): Inspection/Auscultation: abdomen normal to inspection and normal bowel sounds; abdomen not distended Percussion/Palpation: + abdomen tender (+TTP LLQ and LUQ w/o guarding or rebound) and abdomen soft Musculoskeletal: Extremities: no cyanosis and no clubbing right elbow joint FROM, no TTP over joint, +TTP over AC fossa and distal biceps, no mass or edema, no cord palpable Skin: no rashes, warm and dry Neurologic: moves all extremities and awake; no focal motor deficits Psychiatric: A+Ox3, euthymic affect Lymphatic: no lymphedema Results & Data Results & Data Vital Signs (Past 12 Hours) Vital Signs Temp Pulse Pulse Resp BP Pulse Ox O2 Del Method 03/23/23 16:50 70 03/23/23 15:51 36.7 C 65 19 150/77 H 92 Room Air 03/23/23 11:36 36.8 C 83 20 92 Room Air 03/23/23 08:14 36.6 C 73 20 153/73 H 94 Room Air Laboratory Results CBC, BMP reviewed PG Care Time/CCT Total # of Minutes Spent Total Time Spent with Patient: Total time spent is greater than 50% in coordination of care (as documented) at patient's floor/unit and/or counseling patient: Coding Level of Care Code 33319 SUB INP/OBS CARE 3/50MIN Diagnoses Acute ischemic colitis K55.039 Acute lower GI bleeding K92.2 Arm pain M79.603 Osteoarthritis of left hip M16.12 Acute respiratory failure with hypoxia J96.01 Elevated troponin I level R77.8 GERD (gastroesophageal reflux disease) K21.9 History of blood clots Z86.718 Hypertension I10 DDD (degenerative disc disease) Hyperlipidemia E78.5
[2023-03-23] MEDS: DICLOFENAC SOD 1% GEL 100 GM TUBE EXT SCH (21:41)
[2023-03-24] MEDS: traMADol HCL 50 MG TABLET PO PRN ×2 (04:36→11:39)
[2023-03-24] MEDS: LACTATED RINGER'S 1,000 ML IV SCH ×2 (06:28→16:56)
[2023-03-24 07:58] LABS: Basophils # (auto) 0.03 K/uL (0-0.2); Basophils % (auto) 0.2 %; Eosinophils # (auto) 0.37 K/uL (0-0.50); Eosinophils % (auto) 2.8 %; Hematocrit (blood only) 35.5 % (37.0-47.0); Hemoglobin 11.5 g/dl (12.0-16.0); Immature Granulocytes % (auto) 0.8 %; Lymphocytes # (auto) 1.27 K/uL (1.2-3.4); Lymphocytes % (auto) 9.5 %; Mean Corpuscular Hemoglobin 30.4 pg (25.0-34.0); Mean Corpuscular Hgb Conc 32.4 g/dL (32.0-36.0); Mean Corpuscular Volume 93.9 fL (80.0-100.0); Mean Platelet Volume 10.9 fL (9.4-12.4); Monocytes # (auto) 1.22 K/uL (0.11-0.59); Monocytes % (auto) 9.2 %; Neutrophils # (auto) 10.31 K/uL (1.40-6.50); Neutrophils % (auto) 77.5 %; Platelet Count 150 K/uL (130-400); RDW Coefficient of Variation 12.5 % (11.5-14.5); RDW Standard Deviation 43.3 fL (36.4-46.3); Red Blood Count 3.78 M/uL (4.20-5.40)
--- NOTE | 2023-03-24 07:58 | Surgery Progress Note ---
Date of Service March 24, 2023 Assessment & Plan (1) Acute ischemic colitis: Plan: patient reports she is feeling much better than yesterday No abdominal cramping, only mild pain with palpation in lower quadrants Lola N/V, SOB, CP, fevers. Reports some night sweats since being in hospital Denies BM or flatus Patient asking about clear liquid diet, currently NPO. Will trail clears and see how she tolerates. Continue IV antibiotics Labs pending this AM Admission and Anticipated Discharge Date Admission Date: March 21, 2023 Supervising Physician Co-Signing Physician Notes I personally saw and evaluated the patient with Kwame MANZANO and agree with the assessment and plan. 67-year-old female with some inflammation of the distal transverse and proximal descending colon, likely ischemic colitis She is improved from a clinical standpoint with minimal abdominal pain Her white count did go up to 13 from 11, but no fevers or tachycardia She is tolerating clear liquids today, could try full liquids later tonight if she continues to improve Tentative plan would be to give her a low fiber diet tomorrow with possible discharge We will continue to follow Subjective patient reports she is feeling much better than yesterday No abdominal cramping, only mild pain with palpation in lower quadrants Lola N/V, SOB, CP, fevers. Reports some night sweats since being in hospital Denies BM or flatus Review of Systems Constitutional: + sweats (night sweats ); no fever Respiratory: no dyspnea Cardiovascular: no chest pain Gastrointestinal: + abdominal pain (TTP lower quadrants ); no nausea and no vomiting Genitourinary: no problem reported Physical Exam Constitutional: cooperative and comfortable Respiratory: normal respiratory effort and able to speak in complete sentences; no respiratory distress and does not use accessory muscles Cardiovascular: Rate/Rhythm: regular rate Gastrointestinal (Abdomen): Inspection/Auscultation: abdomen not distended Percussion/Palpation: + abdomen tender and abdomen soft Results & Data Vital Signs (Past 12 Hours) Vital Signs Temp Pulse Pulse Resp BP BP Pulse Ox 03/24/23 07:47 97.5 F L 62 17 127/57 L 94 03/24/23 03:33 97.5 F L 63 18 143/79 H 93 03/23/23 22:00 67 03/23/23 23:44 98.6 F 62 18 117/61 94 03/23/23 20:00 08/16/23 19:57 99.1 F 73 18 146/79 H 93 O2 Del Method 03/24/23 07:47 Room Air 03/24/23 03:33 Room Air 03/23/23 22:00 03/23/23 23:44 Room Air 03/23/23 20:00 Room Air 03/23/23 19:57 Room Air PG Care Time/CCT Total # of Minutes Spent Total Time Spent with Patient: Total time spent is greater than 50% in coordination of care (as documented) at patient's floor/unit and/or counseling patient: Coding Level of Care Code 66520 SUB INP/OBS CARE 09/01MIN Diagnoses Acute ischemic colitis K55.039
[2023-03-24 08:25] LABS: Albumin Level 3.3 gm/dl (3.4-5.0); BUN Creatinine Ratio 18.9 (10-20); Bilirubin Direct 0.3 mg/dl (0-0.2); Bilirubin,Total 1.1 mg/dl (0.2-1.0); Calcium 9.7 mg/dl (8.6-10.3); Creatinine Clr Calc Pharmacy 85.7 ml/min; Est GFR (African American) 95.8 ml/min; Est GFR (Non-African American) 82.7 ml/min; Magnesium 1.6 mg/dl (1.7-2.4); Phosphorus 2.7 mg/dl (2.5-4.9); Potassium 4.1 mmol/L (3.5-5.1); Total Protein 6.1 gm/dl (6.0-8.3)
[2023-03-24] MEDS: ATENOLOL 50 MG TABLET PO SCH (09:09)
[2023-03-24] MEDS: DICLOFENAC SOD 1% GEL 100 GM TUBE EXT SCH ×4 (09:09→20:22)
[2023-03-24] MEDS: CIPROFLOXACIN 500 MG TAB PO SCH ×2 (09:09→20:20)
[2023-03-24] MEDS: metroNIDAZOLE 500 MG TAB PO SCH ×3 (09:09→20:21)
[2023-03-24] MEDS: ACETAMINOPHEN 500 MG TAB PO PRN (09:13)
[2023-03-24] MEDS: HYDROmorphone INJ 0.5 MG/0.5 ML SYR IV PRN ×2 (09:14→20:19)
[2023-03-24] MEDS: PANTOprazole 40 MG in SYRINGE 0 ML IV SCH (11:39)
[2023-03-24] MEDS: MAGNESIUM SULFATE / D5W 1 GM/100 ML BAG IV SCH ×2 (11:39→14:16)
--- NOTE | 2023-03-24 19:20 | Hospitalist Progress Note ---
Date of Service March 24, 2023 Assessment & Plan (1) Acute ischemic colitis: Plan: P/w left sided abd pain, leukocytosis, and BRBPR/GI bleeding, suspected acute ischemic colitis seen on CT abd/pel with transverse and descending colon affected With loose stools--> Stool BioFire PCR and C. diff negative Leukocytosis greatly improved but now back up slightly to 13, remains without fevers Hgb mild drop from 14 to 12 to 11.5 No further nausea, adv diet to clears this AM by Surgery and now ready to further advance Surgery, GI consulted, both recommend conservative management, GI follow up outpatient for colonoscopy in 8 weeks Continue Cipro/Flagyl to prevent translocation of gut bacteria/bacteremia but converted to po abx as IV meds caustic and causing her to "blow" numerous IVs adv diet again to full liquids this evening Tylenol, hydromorphone, tramadol for pain and Zofran prn nausea -continue IVFs with LR at 100mL/hr while NPO -follow CBC, BMP, Mag, phos in AM and replace lytes as needed-give 2 grams IV magnesium today -slowly improving (2) Acute lower GI bleeding: Plan: see above, has resolved (3) Arm pain: Plan: right upper arm pain from previous IV sites infiltrating-no erythema or cord to suggest superficial thrombophlebitis slightly improved today but will check right elbow xray -advised warm compresses, elevation -topical voltaren to site -monitor for signs of thrombophlebitis given h/o DVT (4) Osteoarthritis of left hip: Plan: holding home diclofenac for GIB start topical voltaren to left hip and bilat knees tylenol as needed (5) Acute respiratory failure with hypoxia: Plan: Patient with 88-90% oxygen levels on admission following fentanyl administration in ER, now resolved No history of heart failure or sleep apnea to patient's knowledge Chest x-ray negative, Echo no LVEF dysfunction (6) Elevated troponin I level: Plan: Patient denies chest pain at any point. No shortness of breath. No arm pain, no neck pain Mildly elevated troponin of 24 and 27 on repeat, suspect demand ischemia 2/2 GI bleeding -no signs of ischemia on EKG (7) GERD (gastroesophageal reflux disease): Plan: Cont daily PPI IV (8) History of blood clots: Plan: Deferring anticoagulation in the setting of GI bleeding SCDs for prophylaxis (9) Hypertension: Plan: BPs now controlled -continue home po atenolol -continue to hold lisinopril for now -prn IV hydralazine added prn SBP>180 (10) DDD (degenerative disc disease): Plan: Hx chronic back pain continue Tizanidine prn continue tramadol (11) Hyperlipidemia: Plan: -continue pravastatin Plan DVT proph-SCDs Dispo-continued stay but downgrade to med/surg unit Admission and Anticipated Discharge Date Admission Date: March 21, 2023 Subjective Still having right elbow/upper arm pain but has improved throughout the day. Otherwise, LLQ abd pain is improving, passed gas today but no BRBPR at all. Ambulated the halls. Tele with SB, NSR, rates 50-60s Physical Exam Constitutional: WD/WN, vitals as above Neck: trachea midline, no thyromegaly Respiratory: normal respiratory effort, lungs clear to auscultation Cardiovascular: RRR, no murmur, no edema Chest (Breasts): Chest: normal inspection of chest Gastrointestinal (Abdomen): Inspection/Auscultation: abdomen normal to inspection and normal bowel sounds; abdomen not distended Percussion/Palpation: + abdomen tender (+TTP LLQ and LUQ w/o guarding or rebound) and abdomen soft Musculoskeletal: Extremities: no cyanosis and no clubbing +TTP right distal triceps, no masses palpable no erythema or ecchymosis Skin: no rashes, warm and dry Neurologic: moves all extremities and awake; no focal motor deficits Psychiatric: A+Ox3, euthymic affect Lymphatic: no lymphedema Results & Data Results & Data Vital Signs (Past 12 Hours) Vital Signs Temp Pulse Resp BP BP Pulse Ox O2 Del Method 03/24/23 15:43 36.5 C 54 L 18 126/62 93 Room Air 03/24/23 12:01 36.4 C L 56 L 18 124/68 93 Room Air 03/24/23 07:47 36.4 C L 62 17 127/57 L 94 Room Air Laboratory Results CBC, BMP, magnesium reviewed PG Care Time/CCT Total # of Minutes Spent Total Time Spent with Patient: Total time spent is greater than 50% in coordination of care (as documented) at patient's floor/unit and/or counseling patient: Coding Level of Care Code 43187 SUB INP/OBS CARE MIN Diagnoses Acute ischemic colitis K55.039 Acute lower GI bleeding K92.2 Arm pain M79.603 Osteoarthritis of left hip M16.12 Acute respiratory failure with hypoxia J96.01 Elevated troponin I level R77.8 GERD (gastroesophageal reflux disease) K21.9 History of blood clots Z86.718 Hypertension I10 DDD (degenerative disc disease) Hyperlipidemia E78.5
[2023-03-24] MEDS: PRAVASTATIN SOD 20 MG TAB PO SCH (20:21)
[2023-03-25] MEDS: LACTATED RINGER'S 1,000 ML IV SCH (03:49)
--- NOTE | 2023-03-25 07:05 | XRay Report ---
XR elbow RT min 3V routine HISTORY: 67 years-old Female pain,IV infiltration site acute right elbow pain with IV catheter COMPARISON: None TECHNIQUE: 3 views of the right elbow FINDINGS: Small joint effusion suspected. Mild dorsal soft tissue swelling. Moderate osteoarthritis with chondr ocalcinosis. No acute fracture or dislocation identified. IMPRESSION: 1. Moderate osteoarthritis without acute fracture identified. 2. Soft tissue swelling with possible small joint effusion. ACT 112: Negative or not required by law. The above report was generated using voice recognition software. It may contain grammatical, syntax o r spelling errors. Electronically signed by: Maximilian Montenegro M.D. 03/25/2023 7:04 AM
[2023-03-25 08:15] LABS: Basophils # (auto) 0.03 K/uL (0-0.2); Basophils % (auto) 0.2 %; Eosinophils # (auto) 0.35 K/uL (0-0.50); Eosinophils % (auto) 2.6 %; Hematocrit (blood only) 35.3 % (37.0-47.0); Hemoglobin 11.6 g/dl (12.0-16.0); Immature Granulocytes # (auto) 0.12 K/uL (0.01-0.20); Immature Granulocytes % (auto) 0.9 %; Lymphocytes # (auto) 1.14 K/uL (1.2-3.4); Lymphocytes % (auto) 8.6 %; Mean Corpuscular Hemoglobin 30.9 pg (25.0-34.0); Mean Corpuscular Hgb Conc 32.9 g/dL (32.0-36.0); Mean Corpuscular Volume 93.9 fL (80.0-100.0); Mean Platelet Volume 10.5 fL (9.4-12.4); Monocytes # (auto) 1.06 K/uL (0.11-0.59); Neutrophils # (auto) 10.58 K/uL (1.40-6.50); Neutrophils % (auto) 79.7 %; Platelet Count 145 K/uL (130-400); RDW Coefficient of Variation 12.4 % (11.5-14.5); RDW Standard Deviation 42.5 fL (36.4-46.3); Red Blood Count 3.76 M/uL (4.20-5.40); White Blood Count 13.28 K/ul (4.8-10.8)
[2023-03-25] MEDS: ATENOLOL 50 MG TABLET PO SCH (08:21)
[2023-03-25] MEDS: metroNIDAZOLE 500 MG TAB PO SCH ×3 (08:21→19:49)
[2023-03-25] MEDS: CIPROFLOXACIN 500 MG TAB PO SCH ×2 (08:21→19:49)
[2023-03-25] MEDS: DICLOFENAC SOD 1% GEL 100 GM TUBE EXT SCH ×4 (08:30→19:49)
[2023-03-25 09:00] LABS: BUN Creatinine Ratio 16.7 (10-20); Calcium 9.8 mg/dl (8.6-10.3); Creatinine Clr Calc Pharmacy 88.1 ml/min; Est GFR (Non-African American) 85.4 ml/min; Magnesium 1.8 mg/dl (1.7-2.4); Potassium 4.2 mmol/L (3.5-5.1)
--- NOTE | 2023-03-25 11:16 | Surgery Progress Note ---
Date of Service March 25, 2023 Assessment & Plan (1) Acute ischemic colitis: Plan: She still has some pain of mild leukocytosis but is tolerating her clear liquids Can give her full liquids and see how this goes She still without a fever or tachycardia or any signs of frankly ischemic bowel We will continue to follow Admission and Anticipated Discharge Date Admission Date: March 21, 2023 Subjective Patient seen and examined. Still with some generalized abdominal pain. No fevers. Tolerating clear liquids. Review of Systems Constitutional: no fever and no chills Physical Exam Constitutional: WD/WN, vitals as above Gastrointestinal (Abdomen): Soft, minimal tenderness to palpation generalized Results & Data Vital Signs (Past 12 Hours) Vital Signs Temp Pulse Resp BP Pulse Ox O2 Del Method 03/25/23 08:15 70 22 181/78 H Room Air 03/25/23 08:11 36.5 C 72 18 94 Room Air 03/24/23 23:19 36.9 C 73 18 133/63 94 Room Air PG Care Time/CCT Total # of Minutes Spent Total Time Spent with Patient: Total time spent is greater than 50% in coordination of care (as documented) at patient's floor/unit and/or counseling patient: Coding Level of Care Code 59731 SUB INP/OBS CARE 09/01MIN Diagnoses Acute ischemic colitis K55.039
[2023-03-25] MEDS: PANTOprazole 40 MG in SYRINGE 0 ML IV SCH (11:23)
[2023-03-25] MEDS: traMADol HCL 50 MG TABLET PO PRN (11:32)
[2023-03-25] MEDS: ACETAMINOPHEN 500 MG TAB PO PRN (14:59)
--- NOTE | 2023-03-25 15:49 | Hospitalist Progress Note ---
Date of Service March 25, 2023 Assessment & Plan (1) Acute ischemic colitis: Plan: P/w left sided abd pain, leukocytosis, and BRBPR/GI bleeding, suspected acute ischemic colitis seen on CT abd/pel with transverse and descending colon affected With loose stools--> Stool BioFire PCR and C. diff negative Leukocytosis greatly improved but now back up slightly to 13 and remains stable there today, remains without fevers Still with moderate LLQ abd cramping, no nausea, some minimal BRBPR Abd exam benign, soft Hgb mild drop from 14 to 12 to 11.5 and stable again today Surgery, GI consulted, both recommend conservative management, GI follow up outpatient for colonoscopy in 8 weeks Continue Cipro/Flagyl to prevent translocation of gut bacteria/bacteremia but converted to po abx as IV meds caustic and causing her to "blow" numerous IVs- extend po abx to 10 days total rather than 5 as WBC count still high adv diet to low fiber this evening Tylenol, hydromorphone, tramadol for pain and Zofran prn nausea -dc IVFs -follow CBC, BMP, Mag, phos in AM and replace lytes as needed-none neded today -slowly improving (2) Acute lower GI bleeding: Plan: see above (3) Arm pain: Plan: right upper arm pain from previous IV sites infiltrating-no erythema or cord to suggest superficial thrombophlebitis right elbow xray with edema and possible small joint effusion, no fractures pain much improved now -advised warm compresses, elevation -topical voltaren to site -monitor for signs of thrombophlebitis given h/o DVT (4) Osteoarthritis of left hip: Plan: holding home diclofenac for GIB start topical voltaren to left hip and bilat knees tylenol as needed (5) Acute respiratory failure with hypoxia: Plan: Patient with 88-90% oxygen levels on admission following fentanyl administrati on in ER, now resolved No history of heart failure or sleep apnea to patient's knowledge Chest x-ray negative, Echo no LVEF dysfunction (6) Elevated troponin I level: Plan: Patient denies chest pain at any point. No shortness of breath. No arm pain, no neck pain Mildly elevated troponin of 24 and 27 on repeat, suspect demand ischemia 2/2 GI bleeding -no signs of ischemia on EKG (7) GERD (gastroesophageal reflux disease): Plan: Cont daily PPI IV (8) History of blood clots: Plan: Deferring anticoagulation in the setting of GI bleeding SCDs for prophylaxis (9) Hypertension: Plan: BPs more elevated today, requiring IV hydralazine -continue home po atenolol -restart home lisinopril -prn IV hydralazine prn SBP>180 -pain control (10) DDD (degenerative disc disease): Plan: Hx chronic back pain continue Tizanidine prn continue tramadol (11) Hyperlipidemia: Plan: -continue pravastatin Plan DVT proph-SCDs Dispo-continued stay med/surg unit Admission and Anticipated Discharge Date Admission Date: March 21, 2023 Subjective Pt had some increased LLQ pain today, had 2 small BMs that had more sold stool but some scant BRBPR. Is tolerating full liquids and would like to try soft foods. Otherwise no other concerns. BPs have been elevated Right elbow pain improved today Physical Exam Constitutional: WD/WN, vitals as above Neck: trachea midline, no thyromegaly Respiratory: normal respiratory effort, lungs clear to auscultation Cardiovascular: RRR, no murmur, no edema Chest (Breasts): Chest: normal inspection of chest Gastrointestinal (Abdomen): Inspection/Auscultation: abdomen normal to inspection and normal bowel sounds; abdomen not distended Percussion/Palpation: + abdomen tender (+TTP LLQ and LUQ w/o guarding or rebound) and abdomen soft Musculoskeletal: Extremities: no cyanosis and no clubbing right medial elbow with small amount of edema, no erythema, less painful to palpation Skin: no rashes, warm and dry Neurologic: moves all extremities and awake; no focal motor deficits Psychiatric: A+Ox3, euthymic affect Lymphatic: no lymphedema Results & Data Results & Data Vital Signs (Past 12 Hours) Vital Signs Temp Pulse Resp BP BP Pulse Ox O2 Del Method 03/25/23 14:47 36.9 C 69 18 191/69 H 94 Room Air 03/25/23 08:15 70 22 181/78 H Room Air 03/25/23 08:11 36.5 C 72 18 94 Room Air Laboratory Results CBC,BMP, magnesium reviewed PG Care Time/CCT Total # of Minutes Spent Total Time Spent with Patient: Total time spent is greater than 50% in coordination of care (as documented) at patient's floor/unit and/or counseling patient: Coding Level of Care Code 65904 SUB INP/OBS CARE MIN Diagnoses Acute ischemic colitis K55.039 Acute lower GI bleeding K92.2 Arm pain M79.603 Osteoarthritis of left hip M16.12 Acute respiratory failure with hypoxia J96.01 Elevated troponin I level R77.8 GERD (gastroesophageal reflux disease) K21.9 History of blood clots Z86.718 Hypertension I10 DDD (degenerative disc disease) Hyperlipidemia E78.5
[2023-03-25] MEDS: lisinopril 2.5 MG TAB PO SCH (16:44)
[2023-03-25] MEDS: PRAVASTATIN SOD 20 MG TAB PO SCH (19:50)
[2023-03-26] MEDS: traMADol HCL 50 MG TABLET PO PRN ×2 (04:40→15:06)
[2023-03-26] MEDS: DICLOFENAC SOD 1% GEL 100 GM TUBE EXT SCH ×4 (08:28→19:49)
[2023-03-26] MEDS: metroNIDAZOLE 500 MG TAB PO SCH ×3 (08:28→19:49)
[2023-03-26] MEDS: CIPROFLOXACIN 500 MG TAB PO SCH ×2 (08:28→19:50)
[2023-03-26] MEDS: ATENOLOL 50 MG TABLET PO SCH (08:31)
[2023-03-26] MEDS: lisinopril 2.5 MG TAB PO SCH (08:31)
[2023-03-26 10:04] LABS: Basophils # (auto) 0.03 K/uL (0-0.2); Basophils % (auto) 0.2 %; Eosinophils # (auto) 0.36 K/uL (0-0.50); Eosinophils % (auto) 2.6 %; Hematocrit (blood only) 35.9 % (37.0-47.0); Hemoglobin 11.9 g/dl (12.0-16.0); Immature Granulocytes # (auto) 0.12 K/uL (0.01-0.20); Immature Granulocytes % (auto) 0.9 %; Lymphocytes # (auto) 1.17 K/uL (1.2-3.4); Lymphocytes % (auto) 8.5 %; Mean Corpuscular Hemoglobin 31.2 pg (25.0-34.0); Mean Corpuscular Hgb Conc 33.1 g/dL (32.0-36.0); Mean Platelet Volume 10.5 fL (9.4-12.4); Monocytes # (auto) 1.03 K/uL (0.11-0.59); Monocytes % (auto) 7.5 %; Neutrophils # (auto) 11.07 K/uL (1.40-6.50); Neutrophils % (auto) 80.3 %; Platelet Count 162 K/uL (130-400); RDW Coefficient of Variation 12.7 % (11.5-14.5); Red Blood Count 3.82 M/uL (4.20-5.40); White Blood Count 13.78 K/ul (4.8-10.8)
[2023-03-26 10:22] LABS: BUN Creatinine Ratio 19.7 (10-20); Calcium 9.9 mg/dl (8.6-10.3); Creatinine Clr Calc Pharmacy 83.4 ml/min; Est GFR (African American) 92.8 ml/min; Magnesium 1.7 mg/dl (1.7-2.4); Potassium 3.7 mmol/L (3.5-5.1)
[2023-03-26] MEDS: PANTOprazole 40 MG in SYRINGE 0 ML IV SCH (11:01)
[2023-03-26] MEDS ORDERED: IOVERSOL 350 MG 125mL Prefilled Syringe IV ONE (11:57)
--- NOTE | 2023-03-26 12:54 | CT Scan Report ---
CT angio abdomen pelvis w con CLINICAL HISTORY: 67 years-old Female with f/u ischemic colitis,not improving acute generalized ab dominal pain COMPARISON STUDY: 03/21/2023 TECHNIQUE: Following the IV administration of 118 cc of Optiray, CT angiogram of the abdomen and pelv is was performed from the lung bases the proximal femora. Images are reviewed in the axial, sagittal, and coronal planes. 3-D MIPS images are created and assessed. All measurements were obtained accordi ng to NASCET criteria. IV contrast was administered without complication. A dose lowering technique was utilized adhering to the principles of ALARA. CT DOSE: 1291.03 mGy.cm FINDINGS: CTA: Heart is upper limits of normal in size. Mild atherosclerosis of the abdominal aorta and branch vesse ls. No abdominal aortic aneurysm or dissection. The iliac and imaged femoral arteries appear patent. The celiac trunk, and inferior mesenteric arteries and renal arteries are patent. Duplicated right re nal arteries. No active extravasation or acute GI bleeding identified on this study. CT ABDOMEN/PELVIS: Clear lung bases. No pneumatosis or pneumoperitoneum. Unremarkable spleen, moderately atrophic pancre as, gallbladder and adrenal glands. Hepatic steatosis. Nonobstructing bilateral renal calculi measuri ng up to 4 mm. There are a few small cysts noted within the kidneys. No ureteral calculi or hydroneph rosis identified. Decompressed bladder with mild wall thickening. Pelvic floor relaxation with hyster ectomy. Subcentimeter retroperitoneal lymph nodes redemonstrated. No bowel obstruction. Colonic diverticulosis. There is persistent wall thickening with adjacent infla mmatory stranding involving the mid to distal transverse colon and splenic flexure which appears quoc lar to prior. Mild scattered colonic air-fluid levels. Stool filled terminal ileum. Normal appendix. No ascites. Unremarkable soft tissues. No acute fracture. Bilateral hip arthroplasties. IMPRESSION: 1. Unremarkable CTA. 2. Wall thickening of the mid to distal transverse colon and splenic flexure are redemonstrated with associated pericolonic stranding suggestive of a nonspecific colitis. Findings could be correlated wi th colonoscopy to exclude the less likely possibility of an underlying mucosal lesion. 3. No bowel obstruction or pneumoperitoneum. 4. Nonobstructing bilateral nephrolithiasis. 5. Hepatic steatosis. 6. Additional findings as above. ACT 112: Negative or not required by law. The above report was generated using voice recognition software. It may contain grammatical, syntax o r spelling errors. Electronically signed by: Maximilian Montenegro M.D. 03/26/2023 12:53 PM
--- NOTE | 2023-03-26 14:39 | Hospitalist Progress Note ---
Date of Service March 26, 2023 Assessment & Plan (1) Acute ischemic colitis: Plan: P/w left sided abd pain, leukocytosis, and BRBPR/GI bleeding, suspected acute ischemic colitis seen on CT abd/pel with transverse and descending colon affected With loose stools--> Stool BioFire PCR and C. diff negative Leukocytosis greatly improved initially but then went back up after advancing diet slightly to 13 and remains at 13 x 3 days- remains without fevers Still with moderate LLQ abd cramping, no nausea, some minimal BRBPR now resolved Abd exam benign, soft Hgb mild drop from 14 to 12 to 11.5 and stable Surgery, GI consulted, both recommend conservative management, GI follow up outpatient for colonoscopy in 8 weeks -check repeat CT abd/pel today to rule out abscess or worsening infection given persistently high WBC count--> unchanged Continue Cipro/Flagyl to prevent translocation of gut bacteria/bacteremia but converted to po abx as IV meds caustic and causing her to "blow" numerous IVs- extend po abx to 10 days total rather than 5 as WBC count still high continue low fiber diet Tylenol, hydromorphone, tramadol for pain and Zofran prn nausea -follow CBC, BMP, Mag, phos in AM and replace lytes as needed-none needed again today -slowly improving--> possible dc to home tomorro wif WBC count improves and continues to clinically improve (2) Acute lower GI bleeding: Plan: see above (3) Arm pain: Plan: right upper arm pain from previous IV sites infiltrating-no erythema or cord to suggest superficial thrombophlebitis right elbow xray with edema and possible small joint effusion, no fractures pain much improved now -advised warm compresses, elevation -topical voltaren to site -monitor for signs of thrombophlebitis given h/o DVT (4) Osteoarthritis of left hip: Plan: holding home diclofenac for GIB start topical voltaren to left hip and bilat knees tylenol as needed (5) Acute respiratory failure with hypoxia: Plan: Patient with 88-90% oxygen levels on admission following fentanyl administration in ER, now resolved No history of heart failure or sleep apnea to patient's knowledge Chest x-ray negative, Echo no LVEF dysfunction (6) Elevated troponin I level: Plan: Patient denies chest pain at any point. No shortness of breath. No arm pain, no neck pain Mildly elevated troponin of 24 and 27 on repeat, suspect demand ischemia 2/2 GI bleeding -no signs of ischemia on EKG (7) GERD (gastroesophageal reflux disease): Plan: Cont daily PPI IV (8) History of blood clots: Plan: Deferring anticoagulation in the setting of GI bleeding SCDs for prophylaxis (9) Hypertension: Plan: BPs became quite elevated off her BP meds from home- requiring IV hydralazine Now improving but sitll somewhat high with restarting home meds -continue home po atenolol and lisinopril -prn IV hydralazine prn SBP>180 -pain control (10) DDD (degenerative disc disease): Plan: Hx chronic back pain continue Tizanidine prn continue tramadol (11) Hyperlipidemia: Plan: -continue pravastatin Plan DVT proph-SCDs Dispo-continued stay med/surg unit, but possible discharge to home tomorrow Admission and Anticipated Discharge Date Admission Date: March 21, 2023 Anticipated date of discharge: 03/27/23 Subjective Having some LLQ abd cramping after each meal and small BM but no BRBPR. Right arm pain improving daily. No CP, SOB, lightheadedness, cough, or urinary problems. Pain in abd is not as bad as previously. Remains afebrile Physical Exam Constitutional: WD/WN, vitals as above Neck: trachea midline, no thyromegaly Respiratory: normal respiratory effort, lungs clear to auscultation Cardiovascular: RRR, no murmur, no edema Chest (Breasts): Chest: normal inspection of chest Gastrointestinal (Abdomen): Inspection/Auscultation: abdomen normal to inspection and normal bowel sounds; abdomen not distended Percussion/Palpation: + abdomen tender (mild +TTP LLQ and LUQ w/o guarding or rebound) and abdomen soft Musculoskeletal: Extremities: no cyanosis and no clubbing Skin: no rashes, warm and dry Neurologic: moves all extremities and awake; no focal motor deficits Psychiatric: A+Ox3, euthymic affect Lymphatic: no lymphedema Results & Data Results & Data Vital Signs (Past 12 Hours) Vital Signs Temp Pulse Resp BP Pulse Ox O2 Del Method 03/26/23 08:29 72 18 160/72 H 03/26/23 05:34 36.8 C 68 18 169/80 H 94 Room Air Laboratory Results CBC, BMP, magnesium reviewed PG Care Time/CCT Total # of Minutes Spent Total Time Spent with Patient: Total time spent is greater than 50% in coordination of care (as documented) at patient's floor/unit and/or counseling patient: Coding Level of Care Code 88001 SUB INP/OBS CARE 2/35MIN Diagnoses Acute ischemic colitis K55.039 Acute lower GI bleeding K92.2 Arm pain M79.603 Osteoarthritis of left hip M16.12 Acute respiratory failure with hypoxia J96.01 Elevated troponin I level R77.8 GERD (gastroesophageal reflux disease) K21.9 History of blood clots Z86.718 Hypertension I10 DDD (degenerative disc disease) Hyperlipidemia E78.5
--- NOTE | 2023-03-26 16:21 | Surgery Progress Note ---
Date of Service March 26, 2023 Assessment & Plan (1) Acute ischemic colitis: Plan: 03/26/2023 Still having abdominal pain, but is improving. Tolerating low fiber diet. Ambulation encouraged. Will plan to keep another day with possible discharge to home tomorrow. 03/25/2023 She still has some pain of mild leukocytosis but is tolerating her clear liquids Can give her full liquids and see how this goes She still without a fever or tachycardia or any signs of frankly ischemic bowel We will continue to follow Admission and Anticipated Discharge Date Admission Date: March 21, 2023 Supervising Physician Co-Signing Physician Notes I personally saw and evaluated the patient with Paul Perez PA-C and agree with the assessment and plan. 67-year-old female with some inflammation of the distal transverse and proximal descending colon, likely ischemic colitis She continues to improve slowly Medicine ordered a CT scan that was basically the same with some wall thickening in the watershed area of the splenic flexure She is tolerating a low fiber diet still has some abdominal pain I think if she remains stable she can be discharged tomorrow on a low fiber diet with follow-up with GI for her colonoscopy Subjective Patient dressed and sitting in chair. She reports that she is feeling better today, but does still have abdominal discomfort. Her is at bedside. Review of Systems Constitutional: no fever and no chills Physical Exam Constitutional: WD/WN, vitals as above Gastrointestinal (Abdomen): Soft, minimal tenderness to palpation generalized Results & Data Vital Signs (Past 12 Hours) Vital Signs Temp Pulse Resp BP BP Pulse Ox O2 Del Method 03/26/23 15:42 36.4 C L 68 22 152/75 H 95 Room Air 03/26/23 08:29 72 18 160/72 H 03/26/23 05:34 36.8 C 68 18 169/80 H 94 Room Air PG Care Time/CCT Total # of Minutes Spent Total Time Spent with Patient: Total time spent is greater than 50% in coordination of care (as documented) at patient's floor/unit and/or counseling patient: Coding Level of Care Code 88004 SUB INP/OBS CARE 2/35MIN Diagnoses Acute ischemic colitis K55.039
[2023-03-26] MEDS: PRAVASTATIN SOD 20 MG TAB PO SCH (19:50)
[2023-03-27] MEDS: traMADol HCL 50 MG TABLET PO PRN ×2 (04:55→17:27)
[2023-03-27] MEDS: metroNIDAZOLE 500 MG TAB PO SCH ×3 (08:25→21:33)
[2023-03-27] MEDS: lisinopril 2.5 MG TAB PO SCH (08:25)
[2023-03-27] MEDS: ATENOLOL 50 MG TABLET PO SCH (08:25)
[2023-03-27] MEDS: CIPROFLOXACIN 500 MG TAB PO SCH ×2 (08:25→21:33)
[2023-03-27] MEDS: DICLOFENAC SOD 1% GEL 100 GM TUBE EXT SCH ×4 (08:26→21:33)
--- NOTE | 2023-03-27 09:29 | Surgery Progress Note ---
Date of Service March 27, 2023 Assessment & Plan (1) Acute ischemic colitis: Plan: Patient here with concern for ischemic colitis This AM's labs are pending. Vitals are stable and patient afebrile She has been tolerating a low fiber diet Pain remains mild and intermittent. Bloody BM's lessening From our standpoint can be dispo'd to home today and complete course of po abx F/u with GI for outpatient colonoscopy Admission and Anticipated Discharge Date Admission Date: March 21, 2023 Supervising Physician Co-Signing Physician Notes I personally saw and evaluated the patient with Carmen Waterman PA-C and agree with the assessment and plan. 67-year-old female with some inflammation of the distal transverse and proximal descending colon, likely ischemic colitis She stable overall She is tolerating a low fiber diet but her pain and physical exam seems to be slightly improved today She is already on oral antibiotics and tolerating a diet, she can be discharged from a surgical standpoint with follow-up with GI for colonoscopy at some point Subjective Patient is doing fairly well overall. She is tolerating a diet. Has intermittent cramping, but this is stable and not worsening. Small amount of blood per rectum. Wishes to go home. Physical Exam Physical Exam: awake/alert, no distress Respiratory: normal respiratory effort Gastrointestinal (Abdomen): Percussion/Palpation: + abdomen tender (tenderness to palpation is improving) and abdomen soft; no guarding Results & Data Vital Signs (Past 12 Hours) Vital Signs Pulse Resp BP Pulse Ox O2 Del Method 03/27/23 08:24 74 20 148/76 H 93 Room Air PG Care Time/CCT Total # of Minutes Spent Total Time Spent with Patient: Total time spent is greater than 50% in coordination of care (as documented) at patient's floor/unit and/or counseling patient: Coding Level of Care Code 08001 SUB INP/OBS CARE 25MIN Diagnoses Acute ischemic colitis K55.039
[2023-03-27 09:37] LABS: Basophils # (auto) 0.05 K/uL (0-0.2); Basophils % (auto) 0.3 %; Eosinophils # (auto) 0.48 K/uL (0-0.50); Eosinophils % (auto) 3.2 %; Hematocrit (blood only) 36.9 % (37.0-47.0); Hemoglobin 12.5 g/dl (12.0-16.0); Immature Granulocytes # (auto) 0.18 K/uL (0.01-0.20); Immature Granulocytes % (auto) 1.2 %; Lymphocytes # (auto) 1.24 K/uL (1.2-3.4); Lymphocytes % (auto) 8.2 %; Mean Corpuscular Hemoglobin 30.7 pg (25.0-34.0); Mean Corpuscular Hgb Conc 33.9 g/dL (32.0-36.0); Mean Corpuscular Volume 90.7 fL (80.0-100.0); Mean Platelet Volume 10.5 fL (9.4-12.4); Monocytes # (auto) 0.96 K/uL (0.11-0.59); Monocytes % (auto) 6.3 %; Neutrophils % (auto) 80.8 %; Platelet Count 196 K/uL (130-400); RDW Coefficient of Variation 12.8 % (11.5-14.5); RDW Standard Deviation 41.8 fL (36.4-46.3); Red Blood Count 4.07 M/uL (4.20-5.40); White Blood Count 15.21 K/ul (4.8-10.8)
[2023-03-27 09:53] LABS: Albumin Globulin Ratio 1.2 (0.9-2); Albumin Level 3.6 gm/dl (3.4-5.0); BUN Creatinine Ratio 19.5 (10-20); Bilirubin,Total 0.9 mg/dl (0.2-1.0); Calcium 10.1 mg/dl (8.6-10.3); Creatinine Clr Calc Pharmacy 81.5 ml/min; Est GFR (African American) 91.3 ml/min; Est GFR (Non-African American) 78.8 ml/min; Magnesium 1.6 mg/dl (1.7-2.4); Potassium 3.6 mmol/L (3.5-5.1); Total Protein 6.6 gm/dl (6.0-8.3)
[2023-03-27] MEDS: PANTOprazole 40 MG in SYRINGE 0 ML IV SCH (10:42)
[2023-03-27] MEDS: MAGNESIUM SULFATE / D5W 1 GM/100 ML BAG IV SCH ×2 (11:34→13:28)
--- NOTE | 2023-03-27 15:12 | Discharge Summary ---
Discharge Summary Date of Service March 27, 2023 Admission HPI Per Admitting Provider Mellisa 67-year-old female the past medical history of diverticulosis without diverticulitis, GERD, past DVTs many years ago suspected provoked by stasis on short course of anticoagulants not on long-term anticoagulants who presents with 1 day of Hx diverticulosis no diverticulitis No history history of melena, GIB Does have a history of some lose bowels/diarrhea in the moring up to 4-8x in the mornings loose for several years NO chest pain or chest pressure. No shortness of breath no fevers, but has felt chills with some sweats during +Abd pain which is worsed in the middle and slightly to the LLQ. Creeping back up to 8, best its been since arriving ~2/10 after fentanyl and zofran Did not take any medicines this morning DVT 2007. On a blood thinner for ~6 weeks -3 months thinks coumadin. NO family history of blood clots. Blood clot at that time was thought to be provoked by sitting for prolonged periods at work. L ankle intermittently swells at baseline for several years due to foot surgery in 1976. No change or new swelling. Medical History: Reviewed Medications: Reviewed Surgical History: Reviewed Family history: Reviewed Allergies: Reviewed Social History: no tobacco product use. No etoh. Code Status: Full Code Principal Dx & Hospital Course #1 = Principal Diagnosis (1) Acute ischemic colitis: P/w left sided abd pain, leukocytosis, and BRBPR/GI bleeding, suspected acute ischemic colitis seen on CT abd/pel with transverse and descending colon affected With loose stools--> Stool BioFire PCR and C. diff negative Leukocytosis greatly improved initially but then went back up after advancing diet slightly to 13 and remains at 13 x 3 days- remains without fevers Still with moderate LLQ abd cramping, no nausea, some minimal BRBPR now resolved Abd exam benign, soft Hgb mild drop from 14 to 12 to 11.5 and stable Surgery, GI consulted, both recommend conservative management, GI follow up outpatient for colonoscopy in 8 weeks -check repeat CT abd/pel today to rule out abscess or worsening infection given persistently high WBC count--> unchanged Continue Cipro/Flagyl to prevent translocation of gut bacteria/bacteremia but converted to po abx as IV meds caustic and causing her to "blow" numerous IVs- extend po abx to 10 days total rather than 5 as WBC count still high continue low fiber diet Tylenol, hydromorphone, tramadol for pain and Zofran prn nausea -follow CBC, BMP, Mag, phos in AM and replace lytes as needed-none needed again today -slowly improving--> possible dc to home tomorro wif WBC count improves and continues to clinically improve (2) Acute lower GI bleeding: see above (3) Arm pain: right upper arm pain from previous IV sites infiltrating-no erythema or cord to suggest superficial thrombophlebitis right elbow xray with edema and possible small joint effusion, no fractures pain much improved now -advised warm compresses, elevation -topical voltaren to site -monitor for signs of thrombophlebitis given h/o DVT (4) Osteoarthritis of left hip: holding home diclofenac for GIB start topical voltaren to left hip and bilat knees tylenol as needed (5) Acute respiratory failure with hypoxia: Patient with 88-90% oxygen levels on admission following fentanyl administration in ER, now resolved No history of heart failure or sleep apnea to patient's knowledge Chest x-ray negative, Echo no LVEF dysfunction (6) Elevated troponin I level: Patient denies chest pain at any point. No shortness of breath. No arm pain, no neck pain Mildly elevated troponin of 24 and 27 on repeat, suspect demand ischemia 2/2 GI bleeding -no signs of ischemia on EKG (7) GERD (gastroesophageal reflux disease): Cont daily PPI IV (8) History of blood clots: Deferring anticoagulation in the setting of GI bleeding SCDs for prophylaxis (9) Hypertension: BPs became quite elevated off her BP meds from home- requiring IV hydralazine Now improving but sitll somewhat high with restarting home meds -continue home po atenolol and lisinopril -prn IV hydralazine prn SBP>180 -pain control (10) DDD (degenerative disc disease): Hx chronic back pain continue Tizanidine prn continue tramadol (11) Hyperlipidemia: -continue pravastatin Plan DVT proph-SCDs Dispo-continued stay med/surg unit, but possible discharge to home tomorrow Discharge Exam Constitutional WD/WN, vitals as above Neck trachea midline, no thyromegaly Respiratory normal respiratory effort, lungs clear to auscultation Cardiovascular RRR, no murmur, no edema Chest (Breasts) Chest: normal inspection of chest Gastrointestinal (Abdomen) Inspection/Auscultation: abdomen normal to inspection and normal bowel sounds; abdomen not distended Percussion/Palpation: + abdomen tender (mild +TTP LLQ and LUQ w/o guarding or rebound) and abdomen soft Musculoskeletal Extremities: no cyanosis and no clubbing Skin no rashes, warm and dry Neurologic moves all extremities and awake; no focal motor deficits Psychiatric A+Ox3, euthymic affect Lymphatic no lymphedema Updated Medication List Medication Instructions Recorded Confirmed Type clobetasol 0.05 % topical cream 1 appln topical DAILY PRN ezcema 05/08/19 03/21/23 History betamethasone dipropionate 0.05 % 1 appln topical BID PRN skin 01/07/20 03/21/23 Rx topical cream irritation #45 grams turmeric root extract 500 mg 500 mg PO DAILY #30 caps 04/07/22 03/21/23 Rx capsule cholecalciferol (vitamin D3) 25 25 mcg PO QAM 10/18/22 03/21/23 History mcg (1,000 unit) tablet (Vitamin D3) lisinopril 2.5 mg tablet 2.5 mg PO QAM 10/18/22 03/21/23 History omeprazole 20 mg capsule,delayed 20 mg PO QAM 10/18/22 03/21/23 History release atenolol 50 mg tablet 50 mg PO QAM #90 tabs 11/23/22 03/21/23 Rx diclofenac sodium 75 mg 75 mg PO BID pain #180 tabs 12/15/22 03/21/23 Rx tablet,delayed release escitalopram oxalate 5 mg tablet 2.5 mg PO DAILY PRN Anxiety #45 01/13/23 Rx (Lexapro) tabs tizanidine 4 mg tablet 4 mg PO HS muscle spasticity 01/27/23 03/21/23 History pravastatin 20 mg tablet 20 mg PO HS #90 tabs 02/03/23 03/21/23 Rx tramadol 50 mg tablet 50 - 100 mg PO Q6H PRN pain #30 02/25/23 03/21/23 Rx tabs ciprofloxacin HCl 500 mg tablet 500 mg PO BID #8 tabs 03/27/23 Rx metronidazole 500 mg tablet 500 mg PO TID #12 tabs 03/27/23 Rx Hospital Stay Data Consultations 03/21/23 09:34 ED Decision to Admit Stat 03/21/23 10:01 Consult Gastroenterology Stat Consult General Surgery Stat Diagnostic Imagining Performed 03/21/23 07:33 CT abd pelvis IV con only Stat 03/26/23 10:29 CTA abdomen pelvis w con [CT angio abdomen pelvis w con] Urgent 03/27/23 15:02 US venous doppler LE RT Stat Pending Results Patient Have Any Pending Studies at Discharge: No Discharge Instructions Given to Patient (Per Discharging Provider) Please continue on the Cipro and Flagyl antibiotics for 4 more days. You should have a repeat CBC in the next several days to see if your white blood cell count is returning back to normal. Please continue to stay hydrated and eat a soft, low fiber diet. You will need to have a colonoscopy in 6-8 weeks which is already scheduled for you. Avoid taking NSAIDs such as your diclofenac until all bleeding is completely resolved. Coding Diagnoses Acute ischemic colitis K55.039 Acute lower GI bleeding K92.2 Arm pain M79.603 Osteoarthritis of left hip M16.12 Acute respiratory failure with hypoxia J96.01 Elevated troponin I level R77.8 GERD (gastroesophageal reflux disease) K21.9 History of blood clots Z86.718 Hypertension I10 DDD (degenerative disc disease) Hyperlipidemia E78.5
--- NOTE | 2023-03-27 15:54 | Hospitalist Progress Note ---
Date of Service March 27, 2023 Assessment & Plan (1) Acute ischemic colitis: Plan: P/w left sided abd pain, leukocytosis, and BRBPR/GI bleeding, suspected acute ischemic colitis seen on CT abd/pel with transverse and descending colon affected With loose stools--> Stool BioFire PCR and C. diff negative Leukocytosis greatly improved initially but then went back up after advancing diet - remains without fevers Still with moderate LLQ abd cramping, no nausea, some minimal BRBPR but hgb remains stable Abd exam benign, soft Repeat CTA abd/pel 03/26 unchanged from previous Surgery, GI consulted, both recommend conservative management, GI follow up outpatient for colonoscopy in 8 weeks Continue Cipro/Flagyl to prevent translocation of gut bacteria/bacteremia x 10 days total through 03/31/23 continue low fiber diet Tylenol, hydromorphone, tramadol for pain and Zofran prn nausea -follow CBC, BMP, Mag, phos in AM and replace lytes as needed-give 2 grams IV magnesium (2) Acute DVT (deep venous thrombosis): Plan: With right groin/inner thigh pain on 03/27-> given h/o DVT, checked DOppler and was + for extensive acute thrombus from R CFV down to tibial artery -start heparin gtt given recent GI bleeding and monitor for bleeding -check CBC to follow hgb levels -can convert to po anticoagulation once proven no repeat GI bleeding on heparin -should have lifelong AC given this is her second DVT in lifetime (3) Acute lower GI bleeding: Plan: see above (4) Arm pain: Plan: right upper arm pain from previous IV sites infiltrating-no erythema or cord to suggest superficial thrombophlebitis right elbow xray with edema and possible small joint effusion, no fractures pain much improved now -advised warm compresses, elevation -topical voltaren to site -monitor for signs of thrombophlebitis given h/o DVT (5) Osteoarthritis of left hip: Plan: holding home diclofenac for GIB started topical voltaren to left hip and bilat knees tylenol and tramadol as needed (6) Acute respiratory failure with hypoxia: Plan: Patient with 88-90% oxygen levels on admission following fentanyl administration in ER, now resolved No history of heart failure or sleep apnea to patient's knowledge Chest x-ray negative, Echo no LVEF dysfunction (7) Elevated troponin I level: Plan: Patient denies chest pain at any point. No shortness of breath. No arm pain, no neck pain Mildly elevated troponin of 24 and 27 on repeat, suspect demand ischemia 2/2 GI bleeding -no signs of ischemia on EKG (8) GERD (gastroesophageal reflux disease): Plan: Cont daily PPI IV (9) Hypertension: Plan: BPs became quite elevated off her BP meds from home- requiring IV hydralazine Now improving with restarting home meds -continue home po atenolol and lisinopril -prn IV hydralazine prn SBP>180 -pain control (10) DDD (degenerative disc disease): Plan: Hx chronic back pain continue Tizanidine prn continue tramadol (11) Hyperlipidemia: Plan: -continue pravastatin Plan DVT proph-SCDs Dispo-continued stay med/surg unit now for acute proximal DVT Admission and Anticipated Discharge Date Admission Date: March 21, 2023 Subjective Pt reports abd pain is slightly improved, still some LLQ cramping after eating. Had some orange stool today that she thinks has blood in it. No nausea, is sylwia low fiber diet. Right elbow feeling much better, no pain. Describes new onset of fairly significant right groin pain down inner thigh that came on today, got better with pain medicine and has since returned. Venous Doppler obtained and showed extensive proximal acute DVT RLE. Physical Exam Constitutional: WD/WN, vitals as above Neck: trachea midline, no thyromegaly Respiratory: normal respiratory effort, lungs clear to auscultation Cardiovascular: RRR, no murmur, no edema Chest (Breasts): Chest: normal inspection of chest Gastrointestinal (Abdomen): Inspection/Auscultation: abdomen normal to inspection and normal bowel sounds; abdomen not distended Percussion/Palpation: + abdomen tender (mild +TTP LLQ and LUQ w/o guarding or rebound) and abdomen soft Musculoskeletal: Extremities: no cyanosis and no clubbing +TTP over right medial thigh and groin region Skin: no rashes, warm and dry Neurologic: moves all extremities and awake; no focal motor deficits Psychiatric: A+Ox3, euthymic affect Lymphatic: no lymphedema Results & Data Results & Data Vital Signs (Past 12 Hours) Vital Signs Temp Pulse Resp BP BP Pulse Ox O2 Del Method 03/27/23 15:21 36.8 C 65 16 148/76 H 96 Room Air 03/27/23 08:24 74 20 148/76 H 93 Room Air Laboratory Results CBC, BMP, magnesium, PTT reviewed Diagnostic Findings Venous Doppler Study 03/27/23 15:02 US venous doppler LE RT HISTORY: 67 years-old Female h/o DVT,pain in groin acute pain of the right lower extremity COMPARISON: None TECHNIQUE: Multiple real-time sonographic images of the right lower extremity deep venous structures were obtained assessing grayscale appearance, color and spectral flow. FINDINGS: Large occlusive thrombus extends from the common femoral vein into the poplit eal, posterior tibial, peroneal and anterior tibial veins. No thrombus identified within the visualized portions of the right external iliac vein. IMPRESSION: Extensive likely acute DVT. ACT 112: Negative or not required by law. The above report was generated using voice recognition software. It may contain grammatical, syntax or spelling errors. Electronically signed by: Maximilian Montenegro M.D. 03/27/2023 3:58 PM Venous Doppler Study 03/27/23 18:01 ULTRASOUND LEFT LOWER EXTREMITY VENOUS CLINICAL HISTORY: Right lower extremity deep venous thrombosis. COMPARISON STUDY: No priors. TECHNIQUE: Real-time, grayscale, and color Doppler sonography of the deep veins of the left lower extremity was performed from the inguinal crease to the calf. Compression and augmentation were utilized. FINDINGS: There is no sonographic evidence of deep venous thrombosis identified in the left lower extremity. The common femoral, superficial femoral, and po pliteal veins are patent and normally compressible. The greater saphenous vein and the profunda femoris vein at the junction with the common femoral vein are clear. The visualized calf veins are patent. IMPRESSION: There is no sonographic evidence of deep venous thrombosis identified in the left lower extremity. ACT 112: Negative or not required by law. Electronically signed by: Riaz Fernandez M.D. 03/28/2023 12:10 AM PG Care Time/CCT Total # of Minutes Spent Total Time Spent with Patient: Total time spent is greater than 50% in coordination of care (as documented) at patient's floor/unit and/or counseling patient: Coding Level of Care Code 11672 SUB INP/OBS CARE 3/50MIN Diagnoses Acute ischemic colitis K55.039 Acute DVT (deep venous thrombosis) I82.409 Acute lower GI bleeding K92.2 Arm pain M79.603 Osteoarthritis of left hip M16.12 Acute respiratory failure with hypoxia J96.01 Elevated troponin I level R77.8 GERD (gastroesophageal reflux disease) K21.9 Hypertension I10 DDD (degenerative disc disease) Hyperlipidemia E78.5
--- NOTE | 2023-03-27 16:00 | Ultrasound Report ---
US venous doppler LE RT HISTORY: 67 years-old Female h/o DVT,pain in groin acute pain of the right lower extremity COMPARISON: None TECHNIQUE: Multiple real-time sonographic images of the right lower extremity deep venous structures were obtained assessing grayscale appearance, color and spectral flow. FINDINGS: Large occlusive thrombus extends from the common femoral vein into the popliteal, posterior tibial, p eroneal and anterior tibial veins. No thrombus identified within the visualized portions of the right external iliac vein. IMPRESSION: Extensive likely acute DVT. ACT 112: Negative or not required by law. The above report was generated using voice recognition software. It may contain grammatical, syntax o r spelling errors. Electronically signed by: Maximilian Montenegro M.D. 03/27/2023 3:58 PM
[2023-03-27] MEDS ORDERED: Heparin IV Adult Wt-Based Standard WITH Bolus Protocol IV SCH (16:02)
[2023-03-27 17:11] LABS: Basophils # (auto) 0.05 K/uL (0-0.2); Basophils % (auto) 0.4 %; Eosinophils # (auto) 0.43 K/uL (0-0.50); Eosinophils % (auto) 3.3 %; Hematocrit (blood only) 36.9 % (37.0-47.0); Hemoglobin 12.2 g/dl (12.0-16.0); Immature Granulocytes # (auto) 0.12 K/uL (0.01-0.20); Immature Granulocytes % (auto) 0.9 %; Lymphocytes # (auto) 1.24 K/uL (1.2-3.4); Lymphocytes % (auto) 9.6 %; Mean Corpuscular Hgb Conc 33.1 g/dL (32.0-36.0); Mean Corpuscular Volume 93.7 fL (80.0-100.0); Mean Platelet Volume 10.4 fL (9.4-12.4); Neutrophils # (auto) 9.82 K/uL (1.40-6.50); Neutrophils % (auto) 75.8 %; Platelet Count 175 K/uL (130-400); RDW Coefficient of Variation 12.7 % (11.5-14.5); RDW Standard Deviation 43.4 fL (36.4-46.3); Red Blood Count 3.94 M/uL (4.20-5.40); White Blood Count 12.96 K/ul (4.8-10.8)
[2023-03-27] MEDS ORDERED: HEPARIN SOD (PORCINE) 1000 UNIT/ML IV ONE (17:15)
[2023-03-27 17:36] LABS: INR 1.1 (0.9-1.1); Partial Thromboplastin Ratio 0.9; Partial Thromboplastin Time 25.4 Seconds (21.0-31.0); Prothrombin Time 12.4 Seconds (9.0-12.0)
[2023-03-27] MEDS: HEPARIN SODIUM/DEXTROSE 25,000 UNITS/500 ML BAG IV SCH (17:43)
[2023-03-27] MEDS: PRAVASTATIN SOD 20 MG TAB PO SCH (21:33)
--- NOTE | 2023-03-28 00:12 | Ultrasound Report ---
ULTRASOUND LEFT LOWER EXTREMITY VENOUS CLINICAL HISTORY: Right lower extremity deep venous thrombosis. COMPARISON STUDY: No priors. TECHNIQUE: Real-time, grayscale, and color Doppler sonography of the deep veins of the left lower ext remity was performed from the inguinal crease to the calf. Compression and augmentation were utilized . FINDINGS: There is no sonographic evidence of deep venous thrombosis identified in the left lower ext remity. The common femoral, superficial femoral, and popliteal veins are patent and normally compress ible. The greater saphenous vein and the profunda femoris vein at the junction with the common femora l vein are clear. The visualized calf veins are patent. IMPRESSION: There is no sonographic evidence of deep venous thrombosis identified in the left lower e xtremity. ACT 112: Negative or not required by law. Electronically signed by: Riaz Fernandez M.D. 03/28/2023 12:10 AM
[2023-03-28 00:57] LABS: Partial Thromboplastin Ratio 1.6
[2023-03-28 01:02] LABS: Partial Thromboplastin Time 43.9 Seconds (21.0-31.0)
[2023-03-28 05:56] LABS: Basophils # (auto) 0.03 K/uL (0-0.2); Basophils % (auto) 0.3 %; Eosinophils # (auto) 0.53 K/uL (0-0.50); Eosinophils % (auto) 5.1 %; Hemoglobin 11.6 g/dl (12.0-16.0); Immature Granulocytes # (auto) 0.16 K/uL (0.01-0.20); Immature Granulocytes % (auto) 1.5 %; Lymphocytes # (auto) 1.69 K/uL (1.2-3.4); Lymphocytes % (auto) 16.2 %; Mean Corpuscular Hemoglobin 30.6 pg (25.0-34.0); Mean Corpuscular Hgb Conc 33.1 g/dL (32.0-36.0); Mean Corpuscular Volume 92.3 fL (80.0-100.0); Mean Platelet Volume 10.5 fL (9.4-12.4); Monocytes # (auto) 0.99 K/uL (0.11-0.59); Monocytes % (auto) 9.5 %; Neutrophils # (auto) 7.03 K/uL (1.40-6.50); Neutrophils % (auto) 67.4 %; Platelet Count 159 K/uL (130-400); RDW Coefficient of Variation 12.8 % (11.5-14.5); RDW Standard Deviation 42.7 fL (36.4-46.3); Red Blood Count 3.79 M/uL (4.20-5.40); White Blood Count 10.43 K/ul (4.8-10.8)
[2023-03-28 06:11] LABS: BUN Creatinine Ratio 19.4 (10-20); Calcium 9.5 mg/dl (8.6-10.3); Creatinine Clr Calc Pharmacy 87.5 ml/min; Est GFR (Non-African American) 85.4 ml/min; Magnesium 1.9 mg/dl (1.7-2.4); Potassium 3.7 mmol/L (3.5-5.1)
[2023-03-28 06:50] LABS: Partial Thromboplastin Ratio 1.6
[2023-03-28 07:12] LABS: Partial Thromboplastin Time 43.8 Seconds (21.0-31.0)
--- NOTE | 2023-03-28 08:47 | Surgery Progress Note ---
Date of Service March 28, 2023 Assessment & Plan (1) Acute ischemic colitis: Plan: She continues to slowly improve She can be discharged from a surgical standpoint with low fiber diet and follow- up with GI Surgery will sign off, please call with any questions or concerns (2) Acute DVT (deep venous thrombosis): Admission and Anticipated Discharge Date Admission Date: March 21, 2023 Subjective Patient seen and examined. Afebrile. Still tolerating a low fiber diet. Review of Systems Constitutional: no fever and no chills Physical Exam Physical Exam: awake/alert, no distress Respiratory: normal respiratory effort Gastrointestinal (Abdomen): Percussion/Palpation: + abdomen tender (tenderness to palpation is improving) and abdomen soft; no guarding Results & Data Vital Signs (Past 12 Hours) Vital Signs Temp Pulse Pulse Resp BP Pulse Ox O2 Del Method 03/28/23 08:09 18 03/28/23 08:06 36.5 C 65 166/74 H 95 Room Air 03/28/23 03:00 36.5 C 66 18 160/79 H 95 Room Air 03/27/23 23:00 36.8 C 54 L 16 123/70 93 Room Air 03/27/23 22:47 73 PG Care Time/CCT Total # of Minutes Spent Total Time Spent with Patient: Total time spent is greater than 50% in coordination of care (as documented) at patient's floor/unit and/or counseling patient: Coding Level of Care Code 09003 SUB INP/OBS CARE 09/01MIN Diagnoses Acute ischemic colitis K55.039 Acute DVT (deep venous thrombosis) I82.409
[2023-03-28] MEDS: metroNIDAZOLE 500 MG TAB PO SCH ×3 (09:15→21:01)
[2023-03-28] MEDS: lisinopril 2.5 MG TAB PO SCH (09:16)
[2023-03-28] MEDS: CIPROFLOXACIN 500 MG TAB PO SCH ×2 (09:16→21:01)
[2023-03-28] MEDS: CHOLECALCIFEROL 1,000 UNITS 25 MCG TAB PO SCH (09:17)
[2023-03-28] MEDS: ATENOLOL 50 MG TABLET PO SCH (09:17)
[2023-03-28] MEDS: DICLOFENAC SOD 1% GEL 100 GM TUBE EXT SCH ×4 (09:17→21:02)
[2023-03-28] MEDS: HEPARIN SODIUM/DEXTROSE 25,000 UNITS/500 ML BAG IV SCH (12:39)
[2023-03-28] MEDS: traMADol HCL 50 MG TABLET PO PRN ×2 (15:07→21:01)
--- NOTE | 2023-03-28 15:24 | Hospitalist Progress Note ---
Date of Service March 28, 2023 Assessment & Plan (1) Acute ischemic colitis: Plan: Improving. Appreciate general surgery and gastroenterology input. Conservative management at this point. Continue oral Cipro and Flagyl through March 31. Bowel movement texture has not normalized yet but should eventually normalize. No overt GI bleeding. (2) Acute DVT (deep venous thrombosis): Plan: Right lower extremity. Now on heparin drip. This will be switched to Eliquis or Xarelto at the time of discharge. 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 Hemoglobin is stable. Serial labs. (4) Arm pain: Plan: right upper arm pain from previous IV sites infiltrating-no erythema or cord to suggest superficial thrombophlebitis. Right elbow xray with edema and possible small joint effusion, no fractures. Taking tramadol as needed (5) Osteoarthritis of left hip: Plan: holding home diclofenac due to GIB. Started topical voltaren to left hip and bilat knees. Continue tramadol as needed (6) Acute respiratory failure with hypoxia: Plan: Now resolved. Chest x-ray negative, Echo without LVEF dysfunction (7) Elevated troponin I level: Plan: No chest pain. No acute EKG changes. No evidence of acute coronary syndrome . Suspect demand ischemia 2/2 GI bleeding (8) GERD (gastroesophageal reflux disease): Plan: Stable. Cont daily PPI (9) Hypertension: Plan: Stable. Continue atenolol and lisinopril. IV hydralazine as needed if needed (10) DDD (degenerative disc disease): Plan: Hx chronic back pain. Tramadol as neededl (11) Hyperlipidemia: Plan: Stable. Continue pravastatin Plan Hopeful discharge to home tomorrow, March 29 Admission and Anticipated Discharge Date Admission Date: March 21, 2023 Subjective Alert and oriented. She seems to be most worried about her arthritic pain. She is currently taking tramadol 100 mg as needed. Protonix switch from IV to p.o. dosing. Continue conservative management per surgery and GI consultations. She remains on oral Cipro and oral Flagyl through March 31. Hopefully she can go home tomorrow, March 29. Heparin drip will be switched to Eliquis or Xarelto at the time of discharge. Review of Systems Review of Systems: Constitutional-no fever or chills ENT-no blurred vision, no double vision, no epistaxis, no sore throat Respiratory-no cough, no wheezing, no shortness of breath Cardiac-no palpitations, no chest pain, no syncope GI-no nausea, vomiting, diarrhea, hematochezia. Loose stools persist due to ischemic colitis and this may take some time to resolve -no urinary retention, no urinary incontinence, no dysuria, no hematuria Musculoskeletal-bilateral knee and hip pain which is chronic due to underlying arthritis. Skin-no bruising, no rashes, no pruritus Neuro-no isolated weakness, no paresthesia Psych-no depression, no anxiety Physical Exam Physical Exam: General-alert and oriented x3, no fevers, no chills HEENT-head atraumatic and normocephalic, pupils equal and reactive to light, extraocular muscles intact Neck-no lymphadenopathy or thyromegaly, trachea midline Chest-clear to auscultation percussion. No rales wheezing or rhonchi Cardiac-regular rate and rhythm, normal S1 and S2, no murmurs Abdomen-normal bowel sounds, nontender, no hepatosplenomegaly Extremities-no cyanosis, clubbing, or edema Neuro-cranial nerves II through XII intact, motor and sensory function within normal limits, strength symmetrical , no focal deficits Psych-normal affect, normal mood Results & Data Results & Data Vital Signs (Past 12 Hours) Vital Signs Temp Pulse Resp BP Pulse Ox O2 Del Method 03/28/23 11:47 36.7 C 65 18 121/70 Room Air 03/28/23 08:09 18 03/28/23 08:06 36.5 C 65 166/74 H 95 Room Air Laboratory Results 03/28/23 05:27 03/28/23 05:27 PG Care Time/CCT Total # of Minutes Spent Total Time Spent with Patient: Total time spent is greater than 50% in coordination of care (as documented) at patient's floor/unit and/or counseling patient: Coding Level of Care Code 21021 SUB INP/OBS CARE 3/50MIN Diagnoses Acute ischemic colitis K55.039 Acute DVT (deep venous thrombosis) I82.409 Acute lower GI bleeding K92.2 Arm pain M79.603 Osteoarthritis of left hip M16.12 Acute respiratory failure with hypoxia J96.01 Elevated troponin I level R77.8 GERD (gastroesophageal reflux disease) K21.9 Hypertension I10 DDD (degenerative disc disease) Hyperlipidemia E78.5
[2023-03-28] MEDS: PRAVASTATIN SOD 20 MG TAB PO SCH (21:01)
[2023-03-29] MEDS: traMADol HCL 50 MG TABLET PO PRN (03:44)
[2023-03-29 06:50] LABS: Partial Thromboplastin Ratio 1.4; Partial Thromboplastin Time 38.2 Seconds (21.0-31.0)
[2023-03-29 06:58] LABS: Basophils # (auto) 0.04 K/uL (0-0.2); Basophils % (auto) 0.4 %; Eosinophils # (auto) 0.46 K/uL (0-0.50); Eosinophils % (auto) 4.7 %; Hematocrit (blood only) 37.7 % (37.0-47.0); Hemoglobin 12.5 g/dl (12.0-16.0); Immature Granulocytes # (auto) 0.19 K/uL (0.01-0.20); Immature Granulocytes % (auto) 1.9 %; Lymphocytes # (auto) 1.65 K/uL (1.2-3.4); Lymphocytes % (auto) 16.9 %; Mean Corpuscular Hemoglobin 30.7 pg (25.0-34.0); Mean Corpuscular Hgb Conc 33.2 g/dL (32.0-36.0); Mean Corpuscular Volume 92.6 fL (80.0-100.0); Mean Platelet Volume 10.9 fL (9.4-12.4); Monocytes % (auto) 10.2 %; Neutrophils # (auto) 6.44 K/uL (1.40-6.50); Neutrophils % (auto) 65.9 %; Platelet Count 169 K/uL (130-400); RDW Coefficient of Variation 12.6 % (11.5-14.5); RDW Standard Deviation 42.5 fL (36.4-46.3); Red Blood Count 4.07 M/uL (4.20-5.40); White Blood Count 9.78 K/ul (4.8-10.8)
[2023-03-29 07:16] LABS: BUN Creatinine Ratio 19.5 (10-20); Creatinine Clr Calc Pharmacy 81.2 ml/min; Est GFR (African American) 91.3 ml/min; Est GFR (Non-African American) 78.8 ml/min; Potassium 3.8 mmol/L (3.5-5.1)
[2023-03-29] MEDS: lisinopril 2.5 MG TAB PO SCH (08:09)
[2023-03-29] MEDS: CIPROFLOXACIN 500 MG TAB PO SCH (08:09)
[2023-03-29] MEDS: metroNIDAZOLE 500 MG TAB PO SCH ×2 (08:09→13:01)
[2023-03-29] MEDS: CHOLECALCIFEROL 1,000 UNITS 25 MCG TAB PO SCH (08:10)
[2023-03-29] MEDS: ATENOLOL 50 MG TABLET PO SCH (08:10)
[2023-03-29] MEDS: DICLOFENAC SOD 1% GEL 100 GM TUBE EXT SCH ×2 (08:11→12:06)
[2023-03-29] MEDS ORDERED: PANTOprazole 40 MG TAB PO SCH (09:00)
[2023-03-29] MEDS ORDERED: APIXABAN 5 MG TABLET PO SCH (10:45)
[2023-03-29] MEDS: HEPARIN SODIUM/DEXTROSE 25,000 UNITS/500 ML BAG IV SCH (12:39)
--- NOTE | 2023-03-29 13:08 | Discharge Summary ---
Date of Service March 29, 2023 Principal Diagnosis Ischemic colitis, right lower extremity DVT Discharge Exam General-alert and oriented x3, no fevers, no chills HEENT-head atraumatic and normocephalic, pupils equal and reactive to light, extraocular muscles intact Neck-no lymphadenopathy or thyromegaly, trachea midline Chest-clear to auscultation percussion. No rales wheezing or rhonchi Cardiac-regular rate and rhythm, normal S1 and S2, no murmurs Abdomen-normal bowel sounds, nontender, no hepatosplenomegaly Extremities-no cyanosis, clubbing, or edema Neuro-cranial nerves II through XII intact, motor and sensory function within normal limits, strength symmetrical , no focal deficits Psych-normal affect, normal mood Discharge Data Allergies Allergy/AdvReac Type Severity Reaction Status Date / Time morphine Allergy Intermediate hypotension, Verified 03/14/23 09:54 emesis, dry heave [id number] Reductase AdvReac Mild muscle pain Verified 03/14/23 09:54 Inhibitor [Yhvdwmx-Qrk-Has Reductase Inhibitor] Consultations 03/21/23 09:34 ED Decision to Admit Stat 03/21/23 10:01 Consult Gastroenterology Stat Consult General Surgery Stat Ordered Studies 03/21/23 07:33 CT abd pelvis IV con only Stat 03/26/23 10:29 CTA abdomen pelvis w con [CT angio abdomen pelvis w con] Urgent 03/27/23 15:02 US venous doppler LE RT Stat 03/27/23 18:01 US venous doppler LE LT Routine Hospital Course (1) Acute ischemic colitis: Improving. Appreciate general surgery and gastroenterology input. Conservative management at this point. Continue oral Cipro and Flagyl through March 31. Bowel movement texture has not normalized yet but should eventually normalize. No overt GI bleeding. (2) Acute DVT (deep venous thrombosis): Right lower extremity. Heparin drip has been switched to Eliquis. Should consider lifelong AC given this is her second DVT (3) Acute lower GI bleeding: Resolved. Hemoglobin is stable. Serial labs. (4) Arm pain: right upper arm pain from previous IV sites infiltrating-no erythema or cord to suggest superficial thrombophlebitis. Right elbow xray with edema and possible small joint effusion, no fractures. Taking tramadol as needed (5) Osteoarthritis of left hip: Discontinued home diclofenac due to GIB. Started topical voltaren to left hip and bilat knees. Continue tramadol as needed (6) Acute respiratory failure with hypoxia: Now resolved. Chest x-ray negative. Echo without LVEF dysfunction (7) Elevated troponin I level: No chest pain. No acute EKG changes. No evidence of acute coronary syndrome . Suspect demand ischemia 2/2 GI bleeding (8) GERD (gastroesophageal reflux disease): Stable. Cont daily PPI (9) Hypertension: Stable. Continue atenolol and lisinopril. IV hydralazine as needed if needed (10) DDD (degenerative disc disease): Hx chronic back pain. Tramadol as neededl (11) Hyperlipidemia: Stable. Continue pravastatin Plan Home today, March 29 Total Time Total Time Spent Total Time Spent (In Minutes): 40 minutes Discharge Plan Discharge Items Patient Disposition: Home - Self-Care Reason For Visit: ISCHEMIC COLITIS Discharge Diagnosis: Ischemic colitis, right lower extremity DVT Condition on Discharge: Good Activity: As commented below Lifting: No more than 5 pounds Bathing: No limitations Exercise/Sports: Gradually increase as tolerated Non-emergency contact: Primary Care Provider and Tax Services Specialist Call non-emergency contact if: you have any medication questions, your symptoms worsen, your pain is not controlled, your pain is worsening, you have a fever and your temperature is above 101 Follow-up/Referrals: Hanny Milligan CRNP [Primary Care Provider] - 04/05/23 10:30 am (Follow up within 1-2 weeks.) Diet: Low Fiber Diet Comment: x 2 weeks Addtl Attending Provider Instructions: Please continue on the Cipro and Flagyl antibiotics for 4 more days. You should have a repeat CBC in the next several days to see if your white blood cell count is returning back to normal. Please continue to stay hydrated and eat a soft, low fiber diet. You will need to have a colonoscopy in 6-8 weeks which is already scheduled for you. Avoid taking NSAIDs such as your diclofenac until all bleeding is completely resolved. Pending Studies at Discharge: No Stand-Alone Forms: My [facility] Locally, Smoking Cessation Medications and DC Order Prescriptions: New metronidazole 500 mg Tablet 500 mg PO TID Qty: 12 0RF ciprofloxacin HCl 500 mg Tablet 500 mg PO BID Qty: 8 0RF Eliquis 5 mg Tablet See Rx Instructions .ROUTE .COMPLEX Qty: 60 0RF Rx Instructions: 10 mg twice daily for 1 week then 5 mg twice daily thereafter Continued turmeric root extract 500 mg capsule 500 mg PO DAILY Qty: 30 0RF atenolol 50 mg tablet 50 mg PO QAM Qty: 90 3RF escitalopram oxalate [Lexapro] 5 mg tablet 2.5 mg PO DAILY PRN (Reason: Anxiety) Qty: 45 3RF tramadol 50 mg tablet 50 - 100 mg PO Q6H PRN (Reason: pain) Qty: 30 0RF Rx Instructions: Take as needed for Pain. betamethasone dipropionate 0.05 % cream 1 appln TOP BID PRN (Reason: skin irritation) Qty: 45 0RF Rx Instructions: Apply to areas of the legs twice daily x2 weeks as needed for flaring tizanidine 4 mg tablet 4 mg PO HS pravastatin 20 mg tablet 20 mg PO HS Qty: 90 3RF clobetasol 0.05 % cream 1 appln TOP DAILY PRN (Reason: ezcema) omeprazole 20 mg capsule,delayed release(DR/EC) 20 mg PO QAM lisinopril 2.5 mg tablet 2.5 mg PO QAM cholecalciferol (vitamin D3) [Vitamin D3] 25 mcg (1,000 unit) Tablet 25 mcg PO QAM Held diclofenac sodium 75 mg tablet,delayed release (DR/EC) 75 mg PO BID Qty: 180 3RF Hold Instructions: Resume on 04/03/23. Discharge Orders: Discharge Order (Routine); Ordered 03/29/23 Ordered By: Danielito Mike/Other Patient Handouts: Low-Fiber Diet, Prediabetes Admission Data Admit Date/Time: 03/21/23 11:07 Attending Provider: Danielito Mas Admit Provider: Georges Aldrich Primary Care Provider: Hanny Milligan Other Providers: Georges Aldrich ; Dennis Lal ; Oskar Lyles Coding Level of Care Code 68669 INP/OBS DISCH >30 MIN Diagnoses Acute ischemic colitis K55.039 Acute DVT (deep venous thrombosis) I82.409 Acute lower GI bleeding K92.2 Arm pain M79.603 Osteoarthritis of left hip M16.12 Acute respiratory failure with hypoxia J96.01 Elevated troponin I level R77.8 GERD (gastroesophageal reflux disease) K21.9 Hypertension I10 DDD (degenerative disc disease) Hyperlipidemia E78.5
[2023-04-05] MEDS ORDERED: APIXABAN 5 MG TABLET PO SCH (09:00)
== END 2023-03-29 14:36 | disposition home or self-care (01) | DRG 393 ==
LOC: ED 07:12 → SUATTDRO 11:07 → EDINP 11:07 → 2S 11:25 → 3W 03-24 23:12 → 2S 03-27 17:27